=== PATIENT | male | born 1990 | race African-American/Black ===

== ENCOUNTER → 2018-01-22 07:56 | Outpatient (CLI) | payer OTHER, SELFPAY ==
--- NOTE | 2018-01-22 09:30 | PM.TREADMILL ---
Cardiac Stress Test Report Referral & Results Date Patient Seen: 01/22/18 Requesting provider: Poppy Meeks Indication: Chest pain Rest ECG: Unremarkable Procedure Note: Today following both written and verbal informed consent, the patient was exercised according to a standard [facility] protocol. The patient exercised for a total of 12 min 0 sec achieving a maximum heart rate of 189. Patient's maximum systolic blood pressure was 160. This was an estimated 12.8 MET's. There are no ST-T segment changes identified Normal heart rate and blood pressure response although perhaps slightly tachycardic ultimately Functional aerobic impairment rated 5% on the sedentary scale Impression: No evidence of ischemia Average exercise capacity Please note: Actual ECG tracings can be found in the PACS system.
== END ==
PROVIDERS: PCP Internal Medicine; Visit Provider Internal Medicine
DX: R07.9 Chest pain, unspecified (principal)
CPT/HCPCS: 93016; 93017; 93018

== ENCOUNTER 2019-06-01 12:52 | Emergency (ER) | payer OTHER, MEDICAID, SELFPAY ==
[2019-06-01] VITALS (7 sets, daily range): BP systolic 110–137; BP diastolic 71–82; PULSE 80–110; RESP 17–24; TEMP 37.5–39.5; O2SAT 94–100
--- NOTE | 2019-06-01 13:10 | DI.RAD.S_ITS ---
PROCEDURE: XR CHEST 1V INDICATIONS: suspected sepsis TECHNIQUE: One view of the chest was acquired. COMPARISON: None. FINDINGS: Surgical changes and devices: None. Lungs and pleura: Lungs are clear. No pleural effusions or pneumothorax. Mediastinum: Mediastinal contours appear normal. Heart size is normal. Bones and chest wall: No suspicious bony lesions. Overlying soft tissues appear unremarkable. IMPRESSION: Normal for age, source of current suspected sepsis symptoms is not seen. Dictated by: Ruben Lewis M.D. on 06/01/2019 at 13:48 Approved by: Ruben Lewis M.D. on 06/01/2019 at 13:48
[2019-06-01] MEDS: KETOROLAC 60 MG/2 ML VIAL 30 MG IV (13:32)
[2019-06-01] MEDS: ONDANSETRON 4 MG/2 ML INJ IV (13:32)
[2019-06-01] MEDS: SODIUM CHLORIDE 0.9% 1,000 ML 1000 ML IV (13:33)
[2019-06-01 13:39] LABS: Hematocrit 44.7 % (41-53); Hemoglobin 15.1 g/dL (13.5-17.5); Mean Corpuscular HGB Conc 33.8 % (30-36); Mean Corpuscular Hemoglobin 26.3 PG (26-34); Mean Corpuscular Volume 77.7 fL (80-100); Platelet Count 439 X10^3/uL (150-400); Red Blood Cell Count 5.75 X10^6/uL (4.5-5.9); Red Cell Distribution Width 14.2 % (11.6-14.8); White Blood Cell Count 28.5 X10^3/uL (4.5-11.0)
[2019-06-01 13:41] LABS: Add Manual Diff / Slide Review YES
[2019-06-01 13:42] LABS: INR 3.4 (0.9-1.3)
[2019-06-01 13:45] LABS: PTT Partial Thromboplastin Tim 37 SECONDS (26.4-36.2)
[2019-06-01 13:55] LABS: Influenza A - CEPHEID Flu A NEGATIVE (NEGATIVE); Influenza B - CEPHEID Flu B NEGATIVE (NEGATIVE)
--- NOTE | 2019-06-01 14:01 | ED_ITS ---
HPI - Fever <SORIN Elaine - Last Filed: 06/01/19 21:27> General Chief Complaint: Fever Stated Complaint: Fever/Flu Like Symptoms Time Seen by Provider: 06/01/19 12:55 Source: patient Mode of arrival: Ambulatory Limitations: no limitations History of Present Illness HPI Narrative: 28yo male presents emergency department complaining of fever of 101F for the past 5 days, cough, and intermittent vomiting for the past 5 days. Patient states he was staying at home taking Tylenol and ibuprofen but is continuing to have a fever and fatigue. Patient states he has a history of cyclic vomiting, has a history of asthma as a child, occasionally uses his albuterol inhaler. He denies any shortness of breath, abdominal pain, nausea or vomiting today, diarrhea, dizziness, or any other concerns. He denies any known contacts with COVID-19 cases. Related Data Previous Rx's Medication Instructions Recorded ondansetron 4 mg PO Q8H #14 tab 06/01/19 Allergies Allergy/AdvReac Type Severity Reaction Status Date / Time No Known Drug Allergies Allergy Verified 06/01/19 13:09 Review of Systems <SORIN Elaine - Last Filed: 06/01/19 21:27> Review of Systems Narrative: REVIEW OF SYSTEMS: GENERAL: Reports fever, see HPI. HENT: No head trauma or hearing loss. EYES: No loss of vision, double vision, eye pain, irritation or discharge. CARDIOVASCULAR: No chest pain or syncope. RESPIRATORY: No shortness of breath. Reports cough, see HPI. GASTROINTESTINAL: No nausea, vomiting, diarrhea, or constipation. MUSCULOSKELETAL: No weakness or injury. INTEGUMENTARY: No rash, lesions, or pruritus. NEURO: No memory loss, or confusion. Patient History <SORIN Elaine - Last Filed: 06/01/19 21:27> Medical History Cyclic vomiting syndrome (Acute) Social History Smoking Status: Current every day smoker Smoking Status: Current every day smoker tobacco type: cigarettes alcohol intake frequency: 0-2 drinks per day Substance Use Type: marijuana Exam <SORIN Elaine - Last Filed: 06/01/19 21:27> Initial Vital Signs Initial Vital Signs: Vital Signs Temperature 103.1 F H 06/01/19 13:06 Pulse Rate 110 H 06/01/19 13:06 Respiratory Rate 24 06/01/19 13:06 Blood Pressure 110/72 06/01/19 13:06 Pulse Oximetry 98 06/01/19 13:06 PHYSICAL EXAMINATION: GENERAL: Appears ill, lying in bed with eyes closed. Answers questions promptly and appropriately. Vital signs noted. HENT: Normocephalic, atraumatic. Ear canals patent. Oral mucosa is pink and moist. Oropharynx with slight erythema, no exudate. EYES: Conjunctiva pink, sclera white, no periorbital swelling. CHEST: Normal to inspection and without deformities. CARDIOVASCULAR: S1 and S2 sounds normal. Regular rate and rhythm, no murmurs, clicks, or bruits. No pedal edema. RESPIRATORY: Normal respiratory rate, trachea midline, airway patent. No stridor, nasal flaring or accessory muscle use. Lungs are clear in all rucker without wheeze, rhonchi, or crackles. Dry cough noted throughout examination. GASTROINTESTINAL: Bowel sounds normoactive. Abdomen is soft and non-tender. No organomegaly. MUSCULOSKELETAL: Normal gait and coordination. Equal tone and mass bilaterally. EXTREMITIES: CMS intact. Moves all extremities. SKIN: Warm, dry, soft, appropriate color for ethnicity. No lesions, rashes, or wounds. NEURO: Alert and Oriented X 3. Good coordination. No ataxia, or sensory deficits, or cognitive issues. PSYCH: Appropriate affect and mood. <Mildred Ulloa MD - Last Filed: 06/15/19 06:58> Initial Vital Signs Initial Vital Signs: Vital Signs Temperature 103.1 F H 06/01/19 13:06 Pulse Rate 110 H 06/01/19 13:06 Respiratory Rate 24 06/01/19 13:06 Blood Pressure 110/72 06/01/19 13:06 Pulse Oximetry 98 06/01/19 13:06 Course <SORIN Elaine - Last Filed: 06/01/19 21:27> Course Course Narrative: Patient tripped sepsis protocol, isolation precautions were taken. Sepsis orders were placed. Zofran, Toradol, and fluids were given. After administration of medication, patient states he feels significantly better. Patient's vitals normalize, temperature decrease, pulse was no longer tachycardic, patient was able to keep p.o. food and fluids down. Orders Ordered: Discontinued Medications Acetaminophen (Tylenol) 975 mg PO NOW ONE Stop: 06/01/19 15:48 Last Admin: 06/01/19 16:14 Dose: 975 mg Documented by: MARIZA Sodium Chloride (Normal Saline 0.9%) 1,000 mls @ 1,000 mls/hr IV BOLUS ONE Stop: 06/01/19 14:09 Last Infusion: 06/01/19 14:25 Dose: 0 mls/hr Documented by: Admin: 06/01/19 13:33 Dose: 1,000 mls/hr Documented by: MARIZA Lactated Ringer's (Lactated Ringers) 2,517.45 mls @ 839.15 mls/hr 30 ml/kg infuse over 3 hr (2517.45 ml) IV NOW ONE Stop: 06/01/19 17:08 Last Infusion: 06/01/19 16:52 Dose: 0 mls/hr Documented by: Admin: 06/01/19 14:23 Dose: 839.15 mls/hr Documented by: MARIZA Ketorolac Tromethamine (Toradol) 30 mg IV NOW ONE Stop: 06/01/19 13:27 Last Admin: 06/01/19 13:32 Dose: 30 mg Documented by: MARIZA Ondansetron HCl (Zofran) 4 mg IV NOW ONE Stop: 06/01/19 13:11 Last Admin: 06/01/19 13:32 Dose: 4 mg Documented by: MARIZA Consultations Consultation #1: Patient staffed with Dr. Ulloa Vital Signs Vital signs: Vital Signs - 8 hr 06/01/19 13:39 06/01/19 14:15 06/01/19 14:37 Temperature 99.9 F H Pulse Rate 105 H 94 H Respiratory Rate Blood Pressure [Left Arm] 135/82 128/71 Pulse Oximetry 100 94 06/01/19 15:28 06/01/19 15:45 06/01/19 16:31 Temperature 99.5 F Pulse Rate 82 80 Respiratory Rate 17 21 Blood Pressure [Left Arm] 123/73 137/79 Pulse Oximetry 96 100 <Mildred Ulloa MD - Last Filed: 06/15/19 06:58> Orders Ordered: Discontinued Medications Acetaminophen (Tylenol) 975 mg PO NOW ONE Stop: 06/01/19 15:48 Last Admin: 06/01/19 16:14 Dose: 975 mg Documented by: MARIZA Sodium Chloride (Normal Saline 0.9%) 1,000 mls @ 1,000 mls/hr IV BOLUS ONE Stop: 06/01/19 14:09 Last Infusion: 06/01/19 14:25 Dose: 0 mls/hr Documented by: Admin: 06/01/19 13:33 Dose: 1,000 mls/hr Documented by: MARIZA Lactated Ringer's (Lactated Ringers) 2,517.45 mls @ 839.15 mls/hr 30 ml/kg infuse over 3 hr (2517.45 ml) IV NOW ONE Stop: 06/01/19 17:08 Last Infusion: 06/01/19 16:52 Dose: 0 mls/hr Documented by: Admin: 06/01/19 14:23 Dose: 839.15 mls/hr Documented by: MARIZA Ketorolac Tromethamine (Toradol) 30 mg IV NOW ONE Stop: 06/01/19 13:27 Last Admin: 06/01/19 13:32 Dose: 30 mg Documented by: MARIZA Ondansetron HCl (Zofran) 4 mg IV NOW ONE Stop: 06/01/19 13:11 Last Admin: 06/01/19 13:32 Dose: 4 mg Documented by: MARIZA Vital Signs Vital signs: Vital Signs - 8 hr 06/01/19 13:39 06/01/19 14:15 06/01/19 14:37 Temperature 99.9 F H Pulse Rate 105 H 94 H Respiratory Rate Blood Pressure [Left Arm] 135/82 128/71 Pulse Oximetry 100 94 06/01/19 15:28 06/01/19 15:45 06/01/19 16:31 Temperature 99.5 F Pulse Rate 82 80 Respiratory Rate 17 21 Blood Pressure [Left Arm] 123/73 137/79 Pulse Oximetry 96 100 MDM - Fever <SORIN Elaine - Last Filed: 06/01/19 21:27> Medical Records Attestation: I reviewed the patient's medical records. Lab Data Attestation: I reviewed the patient's lab results. Result diagrams: 06/01/19 13:20 06/01/19 13:20 Labs: Lab Results 06/01/19 06/01/19 06/01/19 Range/Units 13:11 13:11 13:20 WBC 28.5 H (4.5-11.0) X10^3/uL RBC 5.75 (4.5-5.9) X10^6/uL Hgb 15.1 (13.5-17.5) g/dL Hct 44.7 (41-53) % MCV 77.7 L (80-100) fL MCH 26.3 (26-34) PG MCHC 33.8 (30-36) % RDW 14.2 (11.6-14.8) % Plt Count 439 H (150-400) X10^3/uL Neut % (Auto) Not Reportable Lymph % (Auto) Not Reportable [place] % (Auto) Not Reportable Eos % (Auto) Not Reportable Baso % (Auto) Not Reportable Lymph # (Auto) Not Reportable [place] # (Auto) Not Reportable Baso # (Auto) Not Reportable Total Counted 100 Seg Neutrophils % 66.0 (38-70) % Band Neutrophils % 6.0 (3-7) % Lymphocytes % (Manual) 7.0 L (25-45) % Atypical Lymphs % 11.0 H ( - 0) % Monocytes % (Manual) 10.0 (2-11) % Neutrophils # (Manual) 11924 H (2264-0908) /uL RBC Morphology Normal morphology PT (10.1-12.7) SECONDS INR (0.9-1.3) APTT (26.4-36.2) SECONDS Sodium (137-145) mmol/L Potassium (3.4-5.1) mmol/L Chloride (98-107) mmol/L Carbon Dioxide (22-32) mmol/L BUN (9-20) mg/dL Creatinine (0.66-1.25) mg/dL Estimated GFR (>60) mL/min BUN/Creatinine Ratio (6-22) Glucose (70-100) mg/dL Lactate (0.7-2.1) mmol/L Calcium (8.4-10.2) mg/dL Total Bilirubin (0.2-1.3) mg/dL AST (17-59) IU/L ALT (<50) IU/L Alkaline Phosphatase (38-126) U/L Total Protein (6.3-8.2) g/dL Albumin (3.5-5.0) g/dL Globulin (1.7-4.1) g/dL Albumin/Globulin Ratio (1.0-2.8) Lipase (23-300) U/L Procalcitonin (<0.5) ng/mL Coronavirus (PCR) Cancelled COVID-19 PCR Not detected (Not Detected) Influenza A (RT-PCR) Flu a negative (NEGATIVE) Influenza B (RT-PCR) Flu b negative (NEGATIVE) 06/01/19 06/01/19 06/01/19 Range/Units 13:20 13:20 13:20 WBC (4.5-11.0) X10^3/uL RBC (4.5-5.9) X10^6/uL Hgb (13.5-17.5) g/dL Hct (41-53) % MCV (80-100) fL MCH (26-34) PG MCHC (30-36) % RDW (11.6-14.8) % Plt Count (150-400) X10^3/uL Neut % (Auto) Lymph % (Auto) [place] % (Auto) Eos % (Auto) Baso % (Auto) Lymph # (Auto) [place] # (Auto) Baso # (Auto) Total Counted Seg Neutrophils % (38-70) % Band Neutrophils % (3-7) % Lymphocytes % (Manual) (25-45) % Atypical Lymphs % ( - 0) % Monocytes % (Manual) (2-11) % Neutrophils # (Manual) (8617-8708) /uL RBC Morphology PT 39.0 H (10.1-12.7) SECONDS INR 3.4 H (0.9-1.3) APTT 37 H (26.4-36.2) SECONDS Sodium 136 L (137-145) mmol/L Potassium 4.3 (3.4-5.1) mmol/L Chloride 98 (98-107) mmol/L Carbon Dioxide 27 (22-32) mmol/L BUN 18 (9-20) mg/dL Creatinine 1.07 (0.66-1.25) mg/dL Estimated GFR > 60.0 (>60) mL/min BUN/Creatinine Ratio 16.8 (6-22) Glucose 121 H (70-100) mg/dL Lactate (0.7-2.1) mmol/L Calcium 9.7 (8.4-10.2) mg/dL Total Bilirubin 0.8 (0.2-1.3) mg/dL AST 21 (17-59) IU/L ALT 13 (<50) IU/L Alkaline Phosphatase 93 (38-126) U/L Total Protein 8.9 H (6.3-8.2) g/dL Albumin 4.4 (3.5-5.0) g/dL Globulin 4.5 H (1.7-4.1) g/dL Albumin/Globulin Ratio 1.0 (1.0-2.8) Lipase 158 (23-300) U/L Procalcitonin 0.43 (<0.5) ng/mL Coronavirus (PCR) COVID-19 PCR (Not Detected) Influenza A (RT-PCR) (NEGATIVE) Influenza B (RT-PCR) (NEGATIVE) 06/01/19 Range/Units 13:20 WBC (4.5-11.0) X10^3/uL RBC (4.5-5.9) X10^6/uL Hgb (13.5-17.5) g/dL Hct (41-53) % MCV (80-100) fL MCH (26-34) PG MCHC (30-36) % RDW (11.6-14.8) % Plt Count (150-400) X10^3/uL Neut % (Auto) Lymph % (Auto) [place] % (Auto) Eos % (Auto) Baso % (Auto) Lymph # (Auto) [place] # (Auto) Baso # (Auto) Total Counted Seg Neutrophils % (38-70) % Band Neutrophils % (3-7) % Lymphocytes % (Manual) (25-45) % Atypical Lymphs % ( - 0) % Monocytes % (Manual) (2-11) % Neutrophils # (Manual) (7900-3035) /uL RBC Morphology PT (10.1-12.7) SECONDS INR (0.9-1.3) APTT (26.4-36.2) SECONDS Sodium (137-145) mmol/L Potassium (3.4-5.1) mmol/L Chloride (98-107) mmol/L Carbon Dioxide (22-32) mmol/L BUN (9-20) mg/dL Creatinine (0.66-1.25) mg/dL Estimated GFR (>60) mL/min BUN/Creatinine Ratio (6-22) Glucose (70-100) mg/dL Lactate 1.1 (0.7-2.1) mmol/L Calcium (8.4-10.2) mg/dL Total Bilirubin (0.2-1.3) mg/dL AST (17-59) IU/L ALT (<50) IU/L Alkaline Phosphatase (38-126) U/L Total Protein (6.3-8.2) g/dL Albumin (3.5-5.0) g/dL Globulin (1.7-4.1) g/dL Albumin/Globulin Ratio (1.0-2.8) Lipase (23-300) U/L Procalcitonin (<0.5) ng/mL Coronavirus (PCR) COVID-19 PCR (Not Detected) Influenza A (RT-PCR) (NEGATIVE) Influenza B (RT-PCR) (NEGATIVE) Point of Care Testing Rapid Strep A Negative Urine Dip Bedside Urine Glucose Negative Bedside Urine Bilirubin + 1 Bedside Urine Ketone +/- 5 Urine Specific [place] 1.020 Bedside Urine Occult Blood - Negative Bedside Urine pH 6.0 Bedside Urine Protein + 30 Bedside Urine Urobilinogen - Negative Bedside Urine Nitrite - Negative Bedside Urine Leukocytes - Negative Esterase Imaging Data Chest x-ray: Radiologist's Impression: [address] [id number] XRay Report Signed Patient: Sajan Gongora LMR#: [id number] : 1990Acct:[id number] Age/Sex: 28 / MDate of Service: 06/01/19 Loc: ED Accession Number: [id number] Procedure: XR chest 1V Ordering Provider: Bella Wilcox PROCEDURE: XR CHEST 1V INDICATIONS: suspected sepsis TECHNIQUE: One view of the chest was acquired. COMPARISON: None. FINDINGS: Surgical changes and devices: None. Lungs and pleura: Lungs are clear. No pleural effusions or pneumothorax. Mediastinum: Mediastinal contours appear normal. Heart size is normal. Bones and chest wall: No suspicious bony lesions. Overlying soft tissues appear unremarkable. IMPRESSION: Normal for age, source of current suspected sepsis symptoms is not seen. Dictated by: Ruben Lewis M.D. on 06/01/2019 at 13:48 Approved by: Ruben Lewis M.D. on 06/01/2019 at 13:48 [facility] Narrative Medical decision making narrative: 28-year-old male presents emergency department for cough, fever, and sore throat. Chest x-ray is negative for pneumonia. Urine clean, strep test negative. Sepsis criteria were met and orders were placed due to presentation and vital signs. Patient's white count was significantly elevated, no other findings of infection were seen. Patient was hemodynamically stable after administration of medication, he was able to keep food and fluids down without vomiting. I am unsure the exact cause of patient's symptoms. However, due to circumstances, CVOID-19 test was ordered. Patient was placed on precautions and instructed to self isolate until symptoms resolve. He did not meet any admission criteria but was counseled extensively to return emergency department for any new or worsening symptoms. Vomiting resolved and he did not have any abdominal pain, less suspicion for acute abdominal etiology. Less likely pneumonia due to negative chest x-ray, clear lung sounds, and no significant dyspnea or hypoxia. Patient agreed to plan of care verbalized understanding. <Mildred Ulloa MD - Last Filed: 06/15/19 06:58> Lab Data Labs: Lab Results 06/01/19 06/01/19 06/01/19 Range/Units 13:11 13:11 13:20 WBC 28.5 H (4.5-11.0) X10^3/uL RBC 5.75 (4.5-5.9) X10^6/uL Hgb 15.1 (13.5-17.5) g/dL Hct 44.7 (41-53) % MCV 77.7 L (80-100) fL MCH 26.3 (26-34) PG MCHC 33.8 (30-36) % RDW 14.2 (11.6-14.8) % Plt Count 439 H (150-400) X10^3/uL Neut % (Auto) Not Reportable Lymph % (Auto) Not Reportable [place] % (Auto) Not Reportable Eos % (Auto) Not Reportable Baso % (Auto) Not Reportable Lymph # (Auto) Not Reportable [place] # (Auto) Not Reportable Baso # (Auto) Not Reportable Total Counted 100 Seg Neutrophils % 66.0 (38-70) % Band Neutrophils % 6.0 (3-7) % Lymphocytes % (Manual) 7.0 L (25-45) % Atypical Lymphs % 11.0 H ( - 0) % Monocytes % (Manual) 10.0 (2-11) % Neutrophils # (Manual) 89479 H (5387-3335) /uL RBC Morphology Normal morphology PT (10.1-12.7) SECONDS INR (0.9-1.3) APTT (26.4-36.2) SECONDS Sodium (137-145) mmol/L Potassium (3.4-5.1) mmol/L Chloride (98-107) mmol/L Carbon Dioxide (22-32) mmol/L BUN (9-20) mg/dL Creatinine (0.66-1.25) mg/dL Estimated GFR (>60) mL/min BUN/Creatinine Ratio (6-22) Glucose (70-100) mg/dL Lactate (0.7-2.1) mmol/L Calcium (8.4-10.2) mg/dL Total Bilirubin (0.2-1.3) mg/dL AST (17-59) IU/L ALT (<50) IU/L Alkaline Phosphatase (38-126) U/L Total Protein (6.3-8.2) g/dL Albumin (3.5-5.0) g/dL Globulin (1.7-4.1) g/dL Albumin/Globulin Ratio (1.0-2.8) Lipase (23-300) U/L Procalcitonin (<0.5) ng/mL Coronavirus (PCR) Cancelled COVID-19 PCR Not detected (Not Detected) Influenza A (RT-PCR) Flu a negative (NEGATIVE) Influenza B (RT-PCR) Flu b negative (NEGATIVE) 06/01/19 06/01/19 06/01/19 Range/Units 13:20 13:20 13:20 WBC (4.5-11.0) X10^3/uL RBC (4.5-5.9) X10^6/uL Hgb (13.5-17.5) g/dL Hct (41-53) % MCV (80-100) fL MCH (26-34) PG MCHC (30-36) % RDW (11.6-14.8) % Plt Count (150-400) X10^3/uL Neut % (Auto) Lymph % (Auto) [place] % (Auto) Eos % (Auto) Baso % (Auto) Lymph # (Auto) [place] # (Auto) Baso # (Auto) Total Counted Seg Neutrophils % (38-70) % Band Neutrophils % (3-7) % Lymphocytes % (Manual) (25-45) % Atypical Lymphs % ( - 0) % Monocytes % (Manual) (2-11) % Neutrophils # (Manual) (0862-2216) /uL RBC Morphology PT 39.0 H (10.1-12.7) SECONDS INR 3.4 H (0.9-1.3) APTT 37 H (26.4-36.2) SECONDS Sodium 136 L (137-145) mmol/L Potassium 4.3 (3.4-5.1) mmol/L Chloride 98 (98-107) mmol/L Carbon Dioxide 27 (22-32) mmol/L BUN 18 (9-20) mg/dL Creatinine 1.07 (0.66-1.25) mg/dL Estimated GFR > 60.0 (>60) mL/min BUN/Creatinine Ratio 16.8 (6-22) Glucose 121 H (70-100) mg/dL Lactate (0.7-2.1) mmol/L Calcium 9.7 (8.4-10.2) mg/dL Total Bilirubin 0.8 (0.2-1.3) mg/dL AST 21 (17-59) IU/L ALT 13 (<50) IU/L Alkaline Phosphatase 93 (38-126) U/L Total Protein 8.9 H (6.3-8.2) g/dL Albumin 4.4 (3.5-5.0) g/dL Globulin 4.5 H (1.7-4.1) g/dL Albumin/Globulin Ratio 1.0 (1.0-2.8) Lipase 158 (23-300) U/L Procalcitonin 0.43 (<0.5) ng/mL Coronavirus (PCR) COVID-19 PCR (Not Detected) Influenza A (RT-PCR) (NEGATIVE) Influenza B (RT-PCR) (NEGATIVE) 06/01/19 Range/Units 13:20 WBC (4.5-11.0) X10^3/uL RBC (4.5-5.9) X10^6/uL Hgb (13.5-17.5) g/dL Hct (41-53) % MCV (80-100) fL MCH (26-34) PG MCHC (30-36) % RDW (11.6-14.8) % Plt Count (150-400) X10^3/uL Neut % (Auto) Lymph % (Auto) [place] % (Auto) Eos % (Auto) Baso % (Auto) Lymph # (Auto) [place] # (Auto) Baso # (Auto) Total Counted Seg Neutrophils % (38-70) % Band Neutrophils % (3-7) % Lymphocytes % (Manual) (25-45) % Atypical Lymphs % ( - 0) % Monocytes % (Manual) (2-11) % Neutrophils # (Manual) (4236-0257) /uL RBC Morphology PT (10.1-12.7) SECONDS INR (0.9-1.3) APTT (26.4-36.2) SECONDS Sodium (137-145) mmol/L Potassium (3.4-5.1) mmol/L Chloride (98-107) mmol/L Carbon Dioxide (22-32) mmol/L BUN (9-20) mg/dL Creatinine (0.66-1.25) mg/dL Estimated GFR (>60) mL/min BUN/Creatinine Ratio (6-22) Glucose (70-100) mg/dL Lactate 1.1 (0.7-2.1) mmol/L Calcium (8.4-10.2) mg/dL Total Bilirubin (0.2-1.3) mg/dL AST (17-59) IU/L ALT (<50) IU/L Alkaline Phosphatase (38-126) U/L Total Protein (6.3-8.2) g/dL Albumin (3.5-5.0) g/dL Globulin (1.7-4.1) g/dL Albumin/Globulin Ratio (1.0-2.8) Lipase (23-300) U/L Procalcitonin (<0.5) ng/mL Coronavirus (PCR) COVID-19 PCR (Not Detected) Influenza A (RT-PCR) (NEGATIVE) Influenza B (RT-PCR) (NEGATIVE) Point of Care Testing Rapid Strep A Negative Urine Dip Bedside Urine Glucose Negative Bedside Urine Bilirubin + 1 Bedside Urine Ketone +/- 5 Urine Specific [place] 1.020 Bedside Urine Occult Blood - Negative Bedside Urine pH 6.0 Bedside Urine Protein + 30 Bedside Urine Urobilinogen - Negative Bedside Urine Nitrite - Negative Bedside Urine Leukocytes - Negative Esterase Discharge Plan Departure Patient Disposition: Home Clinical Impression: Upper respiratory tract infection Qualifiers: URI type: unspecified viral URI Qualified Code(s): J06.9 - Acute upper respiratory infection, unspecified Discharge Date/Time: 06/01/19 16:54 Instructions: DI for Viral Upper Respiratory Infection -- Adult, DI for Fever (Symptom) -- Adult Activity Restrictions/Additional Instructions: Thank you for entrusting me with your care today. As discussed, your x-rays negative for any pneumonia, your blood work does show that you have some sort infection with an elevated white blood cell count. This may be viral. A test for the COVID-19 virus was sent, this can take 4-5 days to return. Please call your primary care provider today or tomorrow and schedule an appointment within the week to have your white blood cell count right checked to rule out other causes of your symptoms. Please remain on strict isolation for 3 days until all of your symptoms including your cough have resolved. Continue to take Tylenol and ibuprofen for fevers, drink lots of fluids, and I have given you a prescription for ondansetron for nausea if needed. Return emergency department for any new or worsening symptoms such as severe shortness of breath, fevers johanny t do not decreased without Tylenol or ibuprofen, inability to keep any fluids down, or any other concerns. Prescriptions: New ondansetron 4 mg tablet,disintegrating 4 mg PO Q8H Qty: 14 RF: 0 Referrals: Shakira Ramos MD [Primary Care Provider] -
[2019-06-01 14:03] LABS: Lactate (Lactic Acid) 1.1 mmol/L (0.7-2.1); Neutrophils Absolute Manual 20520 /uL (3000-5900); Total Cells Counted 100
[2019-06-01 14:04] LABS: RBC Morphology Normal Morphology
[2019-06-01 14:06] LABS: Alanine Aminotransferase 13 IU/L (<50); Albumin 4.4 g/dL (3.5-5.0); Alkaline Phosphatase 93 U/L (38-126); Aspartate Aminotransferase 21 IU/L (17-59); BUN Creatinine Ratio 16.8 (6-22); Bilirubin Total 0.8 mg/dL (0.2-1.3); Blood Urea Nitrogen 18 mg/dL (9-20); Calcium 9.7 mg/dL (8.4-10.2); Carbon Dioxide 27 mmol/L (22-32); Chloride 98 mmol/L (98-107); Estimated Glomerular Filt Rate > 60.0 mL/min (>60); Globulin 4.5 g/dL (1.7-4.1); Glucose 121 mg/dL (70-100); HEMOLYSIS < 15 (0-50); Lipase 158 U/L (23-300); Potassium 4.3 mmol/L (3.4-5.1); Sodium 136 mmol/L (137-145); Total Protein 8.9 g/dL (6.3-8.2)
[2019-06-01] MEDS: LACTATED RINGERS 839.15 ML IV (14:23)
[2019-06-01 14:32] LABS: Procalcitonin 0.43 ng/mL (<0.5)
[2019-06-01] MEDS: ACETAMINOPHEN 325 MG TABLET 975 MG PO (16:14)
[2019-06-11 08:07] LABS: COVID19 Sendout Not Detected (Not Detected)
== END 2019-06-01 16:54 | disposition home or self-care (01) ==
PROVIDERS: Emergency Provider Nurse Practitioner; PCP Internal Medicine
DX: J06.9 Acute upper respiratory infection, unspecified (principal); R50.9 Fever, unspecified
CPT/HCPCS: 36415; 71045; 80053; 81003; 83605; 83690; 84145; 85025; 85610; 85730; 87040; 87502; 87635; 87880; 96361; 96374; 96375; 99284; J1885; J2405

== ENCOUNTER 2019-09-04 08:38 | Emergency (ER) | payer OTHER, MEDICAID, SELFPAY ==
[2019-09-04 08:45] VITALS: BP 151/84; PULSE 95; RESP 18; TEMP 37.4; O2SAT 99; BMI 23.7
[2019-09-04 09:07] LABS: Add Manual Diff / Slide Review NO; Basophils Absolute Auto 100 /uL (0-100); Basophils Percent Auto 0.4 % (0-2); Eosinophils Absolute Auto 600 /uL (0-450); Eosinophils Percent Auto 3.1 % (2-4); Hematocrit 44.4 % (41-53); Hemoglobin 15.2 g/dL (13.5-17.5); Lymphocytes Absolute Auto 1800 /uL (1100-4500); Lymphocytes Percent Auto 9.6 % (25-40); Mean Corpuscular HGB Conc 34.1 % (30-36); Mean Corpuscular Hemoglobin 27.2 PG (26-34); Mean Corpuscular Volume 79.7 fL (80-100); Monocytes Absolute Auto 700 /uL (0-900); Neutrophils Absolute Auto 15500 /uL (1500-7000); Neutrophils Percent Auto 82.9 % (50-75); Platelet Count 366 X10^3/uL (150-400); Red Blood Cell Count 5.58 X10^6/uL (4.5-5.9); Red Cell Distribution Width 14.8 % (11.6-14.8); White Blood Cell Count 18.7 X10^3/uL (4.5-11.0)
--- NOTE | 2019-09-04 09:13 | DI.RAD.S_ITS ---
PROCEDURE: XR ACUTE ABDOMEN SERIES INDICATIONS: abdominal pain with cyclical vomiting TECHNIQUE: One view chest and two views of the abdomen were acquired. COMPARISON: None. FINDINGS: Surgical changes and devices: None. Chest: Lungs are clear. Heart size is normal. No pleural effusions. No pneumoperitoneum. Abdomen: Bowel gas pattern is nonspecific. Moderate amount stool in left colon. suspicious calcifications. Visualized solid organ contours appear normal. Bones: No suspicious bony lesions. IMPRESSION: 1. Nonspecific bowel gas pattern. If patient's symptoms persist or worsen, CT scan of the abdomen/pelvis consider for further evaluation. 2. Moderate fecal loading of the left colon. Dictated by: Yahaira Coker MD, PhD on 09/04/2019 at 9:38 Approved by: Yahaira Coker MD, PhD on 09/04/2019 at 9:39
[2019-09-04 09:15] LABS: INR 1.8 (0.9-1.3); Prothrombin Time 20.9 SECONDS (10.1-12.7)
[2019-09-04] MEDS: ONDANSETRON 4 MG/2 ML INJ IV (09:17)
[2019-09-04 09:18] LABS: PTT Partial Thromboplastin Tim 34 SECONDS (26.4-36.2)
[2019-09-04] MEDS: SODIUM CHLORIDE 0.9% 1,000 ML 2000 ML IV (09:18)
[2019-09-04 09:19] LABS: Alanine Aminotransferase 23 IU/L (<50); Albumin 4.8 g/dL (3.5-5.0); Albumin Globulin Ratio 1.3 (1.0-2.8); Alkaline Phosphatase 89 U/L (38-126); Aspartate Aminotransferase 35 IU/L (17-59); BUN Creatinine Ratio 10.7 (6-22); Bilirubin Total 0.9 mg/dL (0.2-1.3); Blood Urea Nitrogen 12 mg/dL (9-20); Carbon Dioxide 24 mmol/L (22-32); Chloride 102 mmol/L (98-107); Estimated Glomerular Filt Rate > 60.0 mL/min (>60); Globulin 3.7 g/dL (1.7-4.1); Glucose 115 mg/dL (70-100); HEMOLYSIS < 15 (0-50); Lipase 244 U/L (23-300); Potassium 4.1 mmol/L (3.4-5.1); Sodium 137 mmol/L (137-145); Total Protein 8.5 g/dL (6.3-8.2)
[2019-09-04] MEDS: KETOROLAC 60 MG/2 ML VIAL 30 MG IV (09:20)
[2019-09-04] MEDS: diphenhydrAMINE 50 MG/ML VIAL 25 MG IV (09:20)
[2019-09-04 09:51] LABS: Lactate Dehydrogenase 565 U/L (313-618)
[2019-09-04 09:57] LABS: Lactate (Lactic Acid) 2.1 mmol/L (0.7-2.1)
[2019-09-04] MEDS: LORazepam 2 MG/ML INJ 1 MG IV (10:01)
[2019-09-04 10:29] VITALS: BP 138/88; PULSE 86; RESP 16; O2SAT 96
[2019-09-04] MEDS: SODIUM CHLORIDE 0.9% 1,000 ML 1000 ML IV (10:51)
[2019-09-04 11:33] VITALS: BP 155/89; PULSE 82; RESP 17; O2SAT 98
--- NOTE | 2019-09-04 11:39 | ED_ITS ---
HPI - Abdominal Pain General Chief Complaint: Abdominal Pain Stated Complaint: vomiting all morning Time Seen by Provider: 09/04/19 08:58 Source: patient Mode of arrival: Family Vehicle Limitations: no limitations History of Present Illness HPI narrative: CC: Persistent vomiting HPI: The patient is a 28-year-old male who presented to the emergency department with persistent nausea and vomiting which started at 6:30 a.m. in the morning. He states that he has a history of cyclical vomiting and he woke up vomiting. He denies having any significant abdominal pain. He has had no hematemesis coffee-ground emesis. He has been having normal bowel movements without melena hematochezia no diarrhea. He has not been drinking any alcohol he does smoke marijuana on a daily basis and smokes yesterday. He was insistent that his marijuana usage was not causing his cyclical vomiting. He denies a history of diabetes mellitus hypertension but admits to history of asthma. He has had no appendectomy cholecystectomy or surgery on his belly. He smokes cigarettes drinks alcohol and uses marijuana almost daily. Related Data Home Medications Medication Instructions Recorded Confirmed rivaroxaban [Xarelto] 20 mg PO DAILY 09/04/19 09/04/19 Previous Rx's Medication Instructions Recorded ondansetron 4 mg PO Q8H #14 tab 06/01/19 diphenhydramine HCl [Benadryl 25 mg PO Q6H PRN #20 tab 09/04/19 Allergy] ondansetron HCl [Zofran] 4 mg PO Q6H PRN #15 tab 09/04/19 prochlorperazine [Compazine] [address] Q12H PRN #12 each 09/04/19 Allergies Allergy/AdvReac Type Severity Reaction Status Date / Time No Known Drug Allergies Allergy Verified 09/04/19 09:21 Review of Systems Review of Systems Narrative: REVIEW OF SYSTEMS: CONSTITUTIONAL: He denies any fever chills or sweats. NEUROLOGICAL: He has had no headache numbness tingling paresthesias this anesthesia or paresis. EENT: He denies any sore throat or trouble swallowing. CARDIO-PULMONARY: He has had no significant chest pain cough shortness of breath palpitations dizziness. GASTROINTESTINAL: He has cyclical vomiting without hematemesis or coffee-ground emesis GENITAL URINARY: He has had no urinary symptoms. MUSCULOSKELETAL/ RHEUMATOLOGICAL: He denies any back ache. Patient History Medical History Cyclic vomiting syndrome (Acute) Social History Smoking Status: Current every day smoker Smoking Status: Current every day smoker tobacco type: cigarettes alcohol intake frequency: 0-2 drinks per day Substance Use Type: marijuana Exam Narrative Exam Narrative: PHYSICAL EXAM: CONSTITUTIONAL: Awake, Alert, Oriented, Coherent, Cooperative in moderate distress. HEAD: AT/NC EENT: PERRL, FROM of eyes, no discharge, no nystagmus NOSE:No epistaxis or nasal drainage MOUTH:Oral mucosa is moist and pink, posterior pharynx is without erythema or exudate. NECK: Supple, no obvious JVD, Trachea is midline without stridor, no palpable LN. SPINE: Palpationof the cervical, Thoracic, Lumbar or Sacral spine reveals no gross deformity or tenderness. No CVA tenderness. THORAX: No deformity, retractions, chest wall tenderness. LUNGS: The patient jumped when the stethoscope was placed on his back. Lungs were clear and symmetrical. HEART: Normal heart tones, regular rhythm and rate without murmur. ABDOMEN: The patient is tender to palpation of the epigastrium and right upper quadrant. There is no guarding rebound or rigidity. LYMPHATIC: no palpable lymph nodes or spleen. EXTREMITIES: No edema, deformity, tenderness or cyanosis. SKIN: No rash, bruising, petechiae or purpura. NEURO: Awake, alert, oriented, conversive, cranial nerves II-XII are symmetrical , moves all 4 extremities and is ambulatory. Initial Vital Signs Initial Vital Signs: Vital Signs Temperature 99.4 F 09/04/19 08:45 Pulse Rate 95 H 09/04/19 08:45 Respiratory Rate 18 09/04/19 08:45 Blood Pressure 151/84 H 09/04/19 08:45 Pulse Oximetry 99 09/04/19 08:45 Course Course Course Narrative: 1139 the patient has a nonspecific bowel gas pattern. If patient's symptoms persist or worsen a CT scan of the abdomen and pelvis should be considered. The patient has a moderate fecal load in the left colon. His chemistries are basically within normal limits except for a leukocytosis secondary probably to his persistent retching and de margination. The rest of his chemistries are basically within normal limits. The patient is being clinically treated for dehydration and cyclical vomiting. 12:58 patient remains a little anxious. But his vomiting has been controlled. He is feeling well enough that he thinks he can go home. He will be given 1 mg of Ativan p.o.. He will be discharged taking 1-2 tablets of Zofran with the onset of his nausea and vomiting. If this does not control his vomiting he can take 1-2 tablets of Benadryl 25 mg each followed by Compazine rectal suppositories. If this does no t control his vomiting he can return to the emergency department for IV fluids and further evaluation for dehydration. Orders Ordered: ED Orders 09/04/19 12:45 Urine Microscopic Stat Discontinued Medications Dicyclomine HCl (Bentyl) 20 mg PO NOW ONE Stop: 09/04/19 11:41 Last Admin: 09/04/19 12:59 Dose: 20 mg Documented by: RICHARD Diphenhydramine HCl (Benadryl) 25 mg IV NOW ONE Stop: 09/04/19 09:13 Last Admin: 09/04/19 09:20 Dose: 25 mg Documented by: MARIZA Sodium Chloride (Normal Saline 0.9%) 1,000 mls @ 1,000 mls/hr IV BOLUS ONE Stop: 09/04/19 09:48 Last Admin: 09/04/19 09:18 Dose: Not Given Documented by: MARIZA Sodium Chloride (Normal Saline 0.9%) 1,000 mls @ 2,000 mls/hr IV BOLUS ONE Stop: 09/04/19 09:40 Last Infusion: 09/04/19 10:52 Dose: 0 mls/hr Documented by: Admin: 09/04/19 09:18 Dose: 2,000 mls/hr Documented by: MARIZA Ondansetron HCl 8 mg/ Sodium (Chloride) 54 mls @ 216 mls/hr IV NOW ONE Stop: 09/04/19 09:13 Last Admin: 09/04/19 10:52 Dose: Not Given Documented by: RICHARD Sodium Chloride (Normal Saline 0.9%) 1,000 mls @ 1,000 mls/hr IV BOLUS ONE Stop: 09/04/19 10:55 Last Infusion: 09/04/19 12:42 Dose: 0 mls/hr Documented by: Admin: 09/04/19 10:51 Dose: 1,000 mls/hr Documented by: RICHARD Ketorolac Tromethamine (Toradol) 30 mg IV NOW ONE Stop: 09/04/19 09:13 Last Admin: 09/04/19 09:20 Dose: 30 mg Documented by: MARIZA Lorazepam (Ativan) 1 mg IV NOW ONE Stop: 09/04/19 09:55 Last Admin: 09/04/19 10:01 Dose: 1 mg Documented by: RICHARD Lorazepam (Ativan) 1 mg PO NOW ONE Stop: 09/04/19 13:00 Last Admin: 09/04/19 13:14 Dose: 1 mg Documented by: MARIZA Ondansetron HCl (Zofran) 4 mg IV NOW ONE Stop: 09/04/19 08:49 Last Admin: 09/04/19 09:17 Dose: 4 mg Documented by: MARIZA Vital Signs Vital signs: Vital Signs - 8 hr 09/04/19 13:19 Pulse Rate 70 Respiratory Rate 16 Blood Pressure [Right Arm] 124/87 Pulse Oximetry 99 MDM - Abdominal Pain Medical Records Attestation: I reviewed the patient's medical records. Lab Data Attestation: I reviewed the patient's lab results. Result diagrams: 09/04/19 08:58 09/04/19 08:58 Labs: Lab Results 09/04/19 09/04/19 09/04/19 Range/Units 08:58 08:58 08:58 WBC 18.7 H (4.5-11.0) X10^3/uL RBC 5.58 (4.5-5.9) X10^6/uL Hgb 15.2 (13.5-17.5) g/dL Hct 44.4 (41-53) % MCV 79.7 L (80-100) fL MCH 27.2 (26-34) PG MCHC 34.1 (30-36) % RDW 14.8 (11.6-14.8) % Plt Count 366 (150-400) X10^3/uL Neut % (Auto) 82.9 H (50-75) % Lymph % (Auto) 9.6 L (25-40) % Charles % (Auto) 4.0 (3-14) % Eos % (Auto) 3.1 (2-4) % Baso % (Auto) 0.4 (0-2) % Neut # (Auto) 00196 H (4079-2120) /uL Lymph # (Auto) 1800 (6614-1415) /uL Charles # (Auto) 700 (0-900) /uL Eos # (Auto) 600 H (0-450) /uL Baso # (Auto) 100 (0-100) /uL PT 20.9 H (10.1-12.7) SECONDS INR 1.8 H (0.9-1.3) APTT 34 D (26.4-36.2) SECONDS Sodium 137 (137-145) mmol/L Potassium 4.1 (3.4-5.1) mmol/L Chloride 102 (98-107) mmol/L Carbon Dioxide 24 (22-32) mmol/L BUN 12 (9-20) mg/dL Creatinine 1.12 (0.66-1.25) mg/dL Estimated GFR > 60.0 (>60) mL/min BUN/Creatinine Ratio 10.7 (6-22) Glucose 115 H (70-100) mg/dL Lactate (0.7-2.1) mmol/L Calcium 10.0 (8.4-10.2) mg/dL Total Bilirubin 0.9 (0.2-1.3) mg/dL AST 35 (17-59) IU/L ALT 23 (<50) IU/L Alkaline Phosphatase 89 (38-126) U/L Lactate Dehydrogenase (313-618) U/L Total Protein 8.5 H (6.3-8.2) g/dL Albumin 4.8 (3.5-5.0) g/dL Globulin 3.7 (1.7-4.1) g/dL Albumin/Globulin Ratio 1.3 (1.0-2.8) Lipase 244 (23-300) U/L Urine RBC (0-5/HPF) Urine WBC (0-5/HPF) Urine Bacteria (None) Ur Culture Indicated? Micro UA Comment 09/04/19 09/04/19 09/04/19 Range/Units 08:58 09:14 12:45 WBC (4.5-11.0) X10^3/uL RBC (4.5-5.9) X10^6/uL Hgb (13.5-17.5) g/dL Hct (41-53) % MCV (80-100) fL MCH (26-34) PG MCHC (30-36) % RDW (11.6-14.8) % Plt Count (150-400) X10^3/uL Neut % (Auto) (50-75) % Lymph % (Auto) (25-40) % Charles % (Auto) (3-14) % Eos % (Auto) (2-4) % Baso % (Auto) (0-2) % Neut # (Auto) (4260-7746) /uL Lymph # (Auto) (9402-9649) /uL Charles # (Auto) (0-900) /uL Eos # (Auto) (0-450) /uL Baso # (Auto) (0-100) /uL PT (10.1-12.7) SECONDS INR (0.9-1.3) APTT (26.4-36.2) SECONDS Sodium (137-145) mmol/L Potassium (3.4-5.1) mmol/L Chloride (98-107) mmol/L Carbon Dioxide (22-32) mmol/L BUN (9-20) mg/dL Creatinine (0.66-1.25) mg/dL Estimated GFR (>60) mL/min BUN/Creatinine Ratio (6-22) Glucose (70-100) mg/dL Lactate 2.1 (0.7-2.1) mmol/L Calcium (8.4-10.2) mg/dL Total Bilirubin (0.2-1.3) mg/dL AST (17-59) IU/L ALT (<50) IU/L Alkaline Phosphatase (38-126) U/L Lactate Dehydrogenase 565 (313-618) U/L Total Protein (6.3-8.2) g/dL Albumin (3.5-5.0) g/dL Globulin (1.7-4.1) g/dL Albumin/Globulin Ratio (1.0-2.8) Lipase (23-300) U/L Urine RBC None seen (0-5/HPF) Urine WBC None seen (0-5/HPF) Urine Bacteria None seen (None) Ur Culture Indicated? Cult not indicated Micro UA Comment Microscopic normal Point of care testing: Urine Dip Bedside Urine Glucose Negative Bedside Urine Bilirubin - Negative Bedside Urine Ketone +/- 5 Urine Specific [place] 1.005 Bedside Urine Occult Blood - Negative Bedside Urine pH 8.5 Bedside Urine Protein +/- 15 Bedside Urine Urobilinogen - Negative Bedside Urine Nitrite - Negative Bedside Urine Leukocytes - Negative Esterase Discharge Plan Departure Patient Disposition: Home Clinical Impression: Cyclical vomiting Discharge Date/Time: 09/04/19 13:38 Instructions: DI for Vomiting -- Adult, Nausea and Vomiting-Adult Activity Restrictions/Additional Instructions: 1. Your laboratory tests were all normal for your cyclical vomiting. 2. When you are having retching and vomiting spells during these episodes avoid marijuana has possible. 3. When the vomiting starts take 1-2 tablets of Zofran to try and control your vomiting. Then lay down and rest. 4. If the Zofran does not control your vomiting take 1-2 25 mg Benadryl tablets. 5. If this does not control your vomiting then take a 25 mg Compazine rectal suppository. You can take 2 of these per day. 6. If this does not control your vomiting you need to return to the emergency de partment to be re-evaluated for dehydration and possible IV fluids. 7. If you develop severe abdominal pain this passing-out fever or rectal bleeding or profuse diarrhea you need to return to the emergency department. 8. Otherwise you need to follow-up with your primary care physician. You should follow-up with them to be re-evaluated in 48-72 hours. 9. Start off with sips of water the and 1 sure keeping clear fluids down you can advance her diet as tolerated. Prescriptions: New ondansetron HCl [Zofran] 4 mg tablet 4 mg PO Q6H PRN (Reason: nausea and vomiting) Qty: 15 RF: 0 diphenhydramine HCl [Benadryl Allergy] 25 mg tablet 25 mg PO Q6H PRN (Reason: nausea and vomiting) Qty: 20 RF: 0 prochlorperazine [Compazine] 25 mg suppository [address] Q12H PRN (Reason: nausea and vomiting) Qty: 12 RF: 0 No Action ondansetron 4 mg tablet,disintegrating 4 mg PO Q8H Qty: 14 RF: 0 Xarelto 20 mg tablet 20 mg PO DAILY RF: 0 Referrals: Shakira Ramos MD [Primary Care Provider] -
--- NOTE | 2019-09-04 12:09 | PC.NURSE ---
pt complaining of sneezing and his nose being stuffy. Pt is now aware that oxygen via nasal cannula can dry out nose and that it is normal to have a stuffy nose. Per approval of RN pt is advised that he can leave the nasal cannula off as long as his o2 sat doesn't drop. Pt is currently at 99 on RA. Pt has call [facility] and is aware of surroundings
[2019-09-04 12:47] VITALS: BP 139/81; PULSE 74; RESP 16; O2SAT 99
[2019-09-04] MEDS: DICYCLOMINE 10 MG CAPSULE 20 MG PO (12:59)
[2019-09-04 13:13] LABS: Bacteria Urine None Seen; RBC Urine None Seen (0-5/HPF); WBC Urine None Seen (0-5/HPF)
[2019-09-04] MEDS: LORazepam 0.5 MG TABLET 1 MG PO (13:14)
[2019-09-04 13:19] VITALS: BP 124/87; PULSE 70; RESP 16; O2SAT 99
[2019-09-04 13:25] LABS: Culture Indicated Urine Cult Not Indicated; Urine Comments Microscopic Normal
== END 2019-09-04 13:38 | disposition home or self-care (01) ==
PROVIDERS: Emergency Provider Emergency Medicine; PCP Internal Medicine
DX: R11.15 Cyclical vomiting syndrome unrelated to migraine (principal)
CPT/HCPCS: 36415; 74022; 80053; 81003; 81015; 83605; 83615; 83690; 85025; 85610; 85730; 96361; 96374; 96375; 99285; J1200; J1885; J2060; J2405

== ENCOUNTER 2019-09-10 13:02 | Emergency (ER) | payer OTHER, MEDICAID, SELFPAY ==
[2019-09-10 13:08] VITALS: BP 117/77; PULSE 89; RESP 18; TEMP 37.5; O2SAT 100; BMI 23.7
[2019-09-10] MEDS: ONDANSETRON 4 MG ODT SL (14:45)
[2019-09-10 16:36] VITALS: BP 138/86; PULSE 77; RESP 16; TEMP 36.9; O2SAT 100
--- NOTE | 2019-09-10 17:06 | DI.RAD.S_ITS ---
PROCEDURE: XR ACUTE ABDOMEN SERIES INDICATIONS: abd pain, vomiting TECHNIQUE: One view chest and two views of the abdomen were acquired. COMPARISON: [facility], CR, XR ACUTE ABDOMEN SERIES, 09/04/2019, 8:18. FINDINGS: Surgical changes and devices: None. Chest: Lungs are clear. Heart size is normal. No pleural effusions. No pneumoperitoneum. Abdomen: Bowel gas pattern is normal. No suspicious calcifications. Visualized solid organ contours appear normal. Bones: No suspicious bony lesions. IMPRESSION: Normal for age, source of current pain and vomiting symptoms is not seen. Dictated by: Ruben Lewis M.D. on 09/10/2019 at 18:46 Approved by: Ruben Lewis M.D. on 09/10/2019 at 18:47
[2019-09-10] MEDS: SODIUM CHLORIDE 0.9% 1,000 ML 1000 ML IV ×2 (17:14→18:43)
[2019-09-10] MEDS: diphenhydrAMINE 50 MG/ML VIAL 25 MG IV (17:14)
[2019-09-10] MEDS: METOCLOPRAMIDE 10 MG/2 ML INJ IV (17:15)
[2019-09-10 17:16] LABS: Add Manual Diff / Slide Review NO; Basophils Absolute Auto 100 /uL (0-100); Basophils Percent Auto 0.3 % (0-2); Eosinophils Absolute Auto 100 /uL (0-450); Eosinophils Percent Auto 0.5 % (2-4); Hematocrit 45.5 % (41-53); Hemoglobin 15.5 g/dL (13.5-17.5); Lymphocytes Absolute Auto 1400 /uL (1100-4500); Lymphocytes Percent Auto 9.3 % (25-40); Mean Corpuscular HGB Conc 34.1 % (30-36); Mean Corpuscular Hemoglobin 27.2 PG (26-34); Mean Corpuscular Volume 79.9 fL (80-100); Monocytes Absolute Auto 1100 /uL (0-900); Monocytes Percent Auto 6.9 % (3-14); Neutrophils Absolute Auto 12800 /uL (1500-7000); Platelet Count 420 X10^3/uL (150-400); Red Cell Distribution Width 14.4 % (11.6-14.8); White Blood Cell Count 15.5 X10^3/uL (4.5-11.0)
[2019-09-10 17:22] LABS: Alanine Aminotransferase 15 IU/L (<50); Albumin 4.6 g/dL (3.5-5.0); Albumin Globulin Ratio 1.2 (1.0-2.8); Alkaline Phosphatase 85 U/L (38-126); Amylase 76 U/L (30-110); Aspartate Aminotransferase 42 IU/L (17-59); BUN Creatinine Ratio 7.1 (6-22); Bilirubin Total 0.9 mg/dL (0.2-1.3); Blood Urea Nitrogen 17 mg/dL (9-20); Calcium 9.5 mg/dL (8.4-10.2); Carbon Dioxide 26 mmol/L (22-32); Chloride 99 mmol/L (98-107); Globulin 3.7 g/dL (1.7-4.1); Glucose 104 mg/dL (70-100); HEMOLYSIS 16 (0-50); Lipase 97 U/L (23-300); Magnesium 2.6 mg/dL (1.6-2.3); Potassium 3.9 mmol/L (3.4-5.1); Sodium 136 mmol/L (137-145); Total Protein 8.3 g/dL (6.3-8.2)
[2019-09-10 18:07] LABS: Lactate (Lactic Acid) 1.3 mmol/L (0.7-2.1)
[2019-09-10 20:10] LABS: BUN Creatinine Ratio 8.1 (6-22); Blood Urea Nitrogen 16 mg/dL (9-20); Calcium 8.3 mg/dL (8.4-10.2); Carbon Dioxide 24 mmol/L (22-32); Chloride 105 mmol/L (98-107); Estimated Glomerular Filt Rate 40.7 mL/min (>60); Glucose 92 mg/dL (70-100); HEMOLYSIS < 15 (0-50); Potassium 3.9 mmol/L (3.4-5.1); Sodium 138 mmol/L (137-145)
[2019-09-10 20:31] LABS: UR Morphine/Opiate cutoff 300 Negative (Negative); Ur Creatinine 20 (Normal); Ur Specific Gravity 1.015 (Normal); Urine Amphetamines Negative (Negative); Urine Barbiturates Negative (Negative); Urine Benzodiazepines Negative (Negative); Urine Cocaine Positive (Negative); Urine MDMA Negative (Negative); Urine Methadone Negative (Negative); Urine Methamphetamines Negative (Negative); Urine Oxycodone Negative (Negative); Urine Phencyclidine Negative (Negative); Urine Tetrahydrocannabinol Negative (Negative); Urine Tricyclic Antidepressant Negative (Negative); Urine pH 5 (Normal)
[2019-09-10 20:39] VITALS: BP 139/74; PULSE 79; RESP 20; O2SAT 96
--- NOTE | 2019-09-10 20:51 | ED_ITS ---
HPI - Nausea/Vomiting/Diarrhea <JANET Diaz - Last Filed: 09/10/19 21:01> General Chief complaint: Nausea/Vomiting/Diarrhea Stated complaint: SEVERE ANXIETY, VOMITING Time Seen by Provider: 09/10/19 16:45 Source: patient Mode of arrival: Ambulatory Limitations: no limitations History of Present Illness HPI Narrative: The patient is a 28-year-old male current smoker with history of cyclic vomiting who presents with a chief complaint of an exacerbation of his cyclic vomiting syndrome. He was seen at this facility on 09/04/2019 with similar complaints. He states his stomach cramps when he is vomiting. He denies any fevers. He complains of nausea. Last bowel movement yesterday and normal. States that he has a history of cyclic vomiting syndrome related to PTSD with his service. He states that his primary care provider has been working with him. He also complains of anxiety today. He states that he ?huffed something earlier today. Related Data Home Medications Medication Instructions Recorded Confirmed rivaroxaban [Xarelto] 20 mg PO DAILY 09/04/19 09/04/19 Previous Rx's Medication Instructions Recorded ondansetron 4 mg PO Q8H #14 tab 06/01/19 diphenhydramine HCl [Benadryl 25 mg PO Q6H PRN #20 tab 09/04/19 Allergy] ondansetron HCl [Zofran] 4 mg PO Q6H PRN #15 tab 09/04/19 prochlorperazine [Compazine] [address] Q12H PRN #12 each 09/04/19 metoclopramide HCl 10 mg PO Q6H PRN #14 tab 09/10/19 ondansetron 4 mg PO Q6H PRN #20 tab 09/10/19 Allergies Allergy/AdvReac Type Severity Reaction Status Date / Time No Known Drug Allergies Allergy Verified 09/04/19 09:21 Review of Systems <JANET Diaz - Last Filed: 09/10/19 21:01> Review of Systems Narrative: GENERAL: Denies chills, fatigue, malaise, fever, sweats. HEENT: Denies sinus pain, ear pain, sore throat, difficulty swallowing, dizziness. RESPIRATORY: Denies dyspnea, cough, wheezing, hemoptysis, sputum. CARDIOVASCULAR: Denies chest pain, palpitations, orthopnea, edema, GASTROINTESTINAL: See HPI : Denies dysuria, frequency, incontinence, hematuria, urinary retention. MUSCULOSKELETAL: denies weakness, joint pain, or bony pain SKIN: Denies rash, skin lesions, or other NEUROLOGIC: Denies weakness, headache, numbness, change in speech, confusion, seizures, incoordination. PSYCHIATRIC: No concerning psychosocial issues. 12 point review of systems is negative except for those stated above Patient History <JANET Diaz - Last Filed: 09/10/19 21:01> Medical History Cyclic vomiting syndrome (Acute) Social History Smoking Status: Current every day smoker Smoking Status: Current every day smoker tobacco type: cigarettes alcohol intake frequency: 0-2 drinks per day Substance Use Type: marijuana Exam <JANET Diaz - Last Filed: 09/10/19 21:01> Narrative Exam Narrative: GENERAL: This is a well-nourished, well-developed patient, in no acute distress HEAD: Atraumatic. Normocephalic. No temporal or scalp tenderness. EYES: Pupils equal round and reactive. Extraocular motions intact. No scleral icterus. No injection or drainage. ENT: Nose without bleeding, purulent drainage or septal hematoma. Throat without erythema, tonsillar hypertrophy or exudate. Uvula midline. Airway patent. NECK: Trachea midline. No JVD or lymphadenopathy. Supple, nontender, no meningeal signs. CARDIOVASCULAR: Regular rate and rhythm RESPIRATORY: Clear to auscultation. Breath sounds equal bilaterally. No wheezes, rales, or rhonchi. No cough. No increased respiratory effort. No accessory muscle use. GASTROINTESTINAL: Abdomen soft, diffusely tender, nondistended. No hepato- splenomegaly, or palpable masses. No guarding. EXTREMITIES: No clubbing, cyanosis, or edema. No joint tenderness, effusion, or edema noted. BACK: Nontender without deformity or crepitance. No flank tenderness. NEURO: AOx3. SKIN: No rash or erythema. Initial Vital Signs Initial Vital Signs: Vital Signs Temperature 99.5 F 09/10/19 13:08 Pulse Rate 89 09/10/19 13:08 Respiratory Rate 18 09/10/19 13:08 Blood Pressure 117/77 09/10/19 13:08 Pulse Oximetry 100 09/10/19 13:08 <Vick Danielson DO - Last Filed: 09/10/19 22:27> Initial Vital Signs Initial Vital Signs: Vital Signs Temperature 99.5 F 09/10/19 13:08 Pulse Rate 89 09/10/19 13:08 Respiratory Rate 18 09/10/19 13:08 Blood Pressure 117/77 09/10/19 13:08 Pulse Oximetry 100 09/10/19 13:08 Scores <JANET Diaz - Last Filed: 09/10/19 21:01> GCS [place] coma scale eye opening: Spontaneous [place] coma scale verbal response: Orientated [place] coma scale motor response: Obey commands [place] coma scale total score: 15 Course <JANET Diaz - Last Filed: 09/10/19 21:01> Orders Ordered: ED Orders 09/10/19 16:48 Amylase Stat Complete Blood Count AUTO DIFF Stat Comprehensive Metabolic Panel Stat Lipase Stat Magnesium Stat 09/10/19 17:06 XR acute abdomen series Stat 09/10/19 17:38 Lactate (Lactic Acid) Stat 09/10/19 19:50 Basic Metabolic Panel Stat 09/10/19 20:18 Urine Drug Screen, Rapid Stat Discontinued Medications Diphenhydramine HCl (Benadryl) 25 mg IV NOW ONE Stop: 09/10/19 17:07 Last Admin: 09/10/19 17:14 Dose: 25 mg Documented by: BUCK Sodium Chloride (Normal Saline 0.9%) 1,000 mls @ 1,000 mls/hr IV BOLUS ONE Stop: 09/10/19 18:05 Last Infusion: 09/10/19 18:16 Dose: 0 mls/hr Documented by: Admin: 09/10/19 17:14 Dose: 1,000 mls/hr Documented by: BSMEN Sodium Chloride (Normal Saline 0.9%) 1,000 mls @ 1,000 mls/hr IV BOLUS ONE Stop: 09/10/19 19:34 Last Infusion: 09/10/19 19:40 Dose: 0 mls/hr Documented by: Admin: 09/10/19 18:43 Dose: 1,000 mls/hr Documented by: BUCK Metoclopramide HCl (Reglan) 10 mg IV NOW ONE Stop: 09/10/19 17:07 Last Admin: 09/10/19 17:15 Dose: 10 mg Documented by: BUCK Ondansetron HCl (Zofran Odt) 4 mg SL NOW ONE Stop: 09/10/19 14:41 Last Admin: 09/10/19 14:45 Dose: 4 mg Documented by: CHATO Ondansetron HCl (Zofran Odt Prepack) 1 bottle MISC SEEINSTR ONE Stop: 09/10/19 20:45 Last Admin: 09/10/19 21:03 Dose: 1 bottle Documented by: BUCK Vital Signs Vital signs: Vital Signs - 8 hr 09/10/19 16:36 09/10/19 20:39 Temperature 98.5 F Pulse Rate 77 79 Respiratory Rate 16 20 Blood Pressure [Left Arm] 138/86 139/74 Pulse Oximetry 100 96 <Vick Danielson DO - Last Filed: 09/10/19 22:27> Orders Ordered: ED Orders 09/10/19 16:48 Amylase Stat Complete Blood Count AUTO DIFF Stat Comprehensive Metabolic Panel Stat Lipase Stat Magnesium Stat 09/10/19 17:06 XR acute abdomen series Stat 09/10/19 17:38 Lactate (Lactic Acid) Stat 09/10/19 19:50 Basic Metabolic Panel Stat 09/10/19 20:18 Urine Drug Screen, Rapid Stat Discontinued Medications Diphenhydramine HCl (Benadryl) 25 mg IV NOW ONE Stop: 09/10/19 17:07 Last Admin: 09/10/19 17:14 Dose: 25 mg Documented by: BUCK Sodium Chloride (Normal Saline 0.9%) 1,000 mls @ 1,000 mls/hr IV BOLUS ONE Stop: 09/10/19 18:05 Last Infusion: 09/10/19 18:16 Dose: 0 mls/hr Documented by: Admin: 09/10/19 17:14 Dose: 1,000 mls/hr Documented by: BUCK Sodium Chloride (Normal Saline 0.9%) 1,000 mls @ 1,000 mls/hr IV BOLUS ONE Stop: 09/10/19 19:34 Last Infusion: 09/10/19 19:40 Dose: 0 mls/hr Documented by: Admin: 09/10/19 18:43 Dose: 1,000 mls/hr Documented by: BUCK Metoclopramide HCl (Reglan) 10 mg IV NOW ONE Stop: 09/10/19 17:07 Last Admin: 09/10/19 17:15 Dose: 10 mg Documented by: BUCK Ondansetron HCl (Zofran Odt) 4 mg SL NOW ONE Stop: 09/10/19 14:41 Last Admin: 09/10/19 14:45 Dose: 4 mg Documented by: CHATO Ondansetron HCl (Zofran Odt Prepack) 1 bottle MISC SEEINSTR ONE Stop: 09/10/19 20:45 Last Admin: 09/10/19 21:03 Dose: 1 bottle Documented by: BUCK Vital Signs Vital signs: Vital Signs - 8 hr 09/10/19 16:36 09/10/19 20:39 Temperature 98.5 F Pulse Rate 77 79 Respiratory Rate 16 20 Blood Pressure [Left Arm] 138/86 139/74 Pulse Oximetry 100 96 MDM - Nausea/Vomiting/Diarrhea <FELIPA Diaz - Last Filed: 09/10/19 21:01> Lab Data Result diagrams: 09/10/19 16:48 09/10/19 19:50 Labs: Lab Results 09/10/19 09/10/19 09/10/19 Range/Units 16:48 16:48 17:38 WBC 15.5 H (4.5-11.0) X10^3/uL RBC 5.70 (4.5-5.9) X10^6/uL Hgb 15.5 (13.5-17.5) g/dL Hct 45.5 (41-53) % MCV 79.9 L (80-100) fL MCH 27.2 (26-34) PG MCHC 34.1 (30-36) % RDW 14.4 (11.6-14.8) % Plt Count 420 H (150-400) X10^3/uL Neut % (Auto) 83.0 H (50-75) % Lymph % (Auto) 9.3 L (25-40) % [place] % (Auto) 6.9 (3-14) % Eos % (Auto) 0.5 L (2-4) % Baso % (Auto) 0.3 (0-2) % Neut # (Auto) 63312 H (5435-2317) /uL Lymph # (Auto) 1400 (5269-9104) /uL [place] # (Auto) 1100 H (0-900) /uL Eos # (Auto) 100 (0-450) /uL Baso # (Auto) 100 (0-100) /uL Sodium 136 L (137-145) mmol/L Potassium 3.9 (3.4-5.1) mmol/L Chloride 99 (98-107) mmol/L Carbon Dioxide 26 (22-32) mmol/L BUN 17 (9-20) mg/dL Creatinine 2.38 H (0.66-1.25) mg/dL Estimated GFR 33.0 L (>60) mL/min BUN/Creatinine Ratio 7.1 (6-22) Glucose 104 H (70-100) mg/dL Lactate 1.3 (0.7-2.1) mmol/L Calcium 9.5 (8.4-10.2) mg/dL Magnesium 2.6 H (1.6-2.3) mg/dL Total Bilirubin 0.9 (0.2-1.3) mg/dL AST 42 (17-59) IU/L ALT 15 (<50) IU/L Alkaline Phosphatase 85 (38-126) U/L Total Protein 8.3 H (6.3-8.2) g/dL Albumin 4.6 (3.5-5.0) g/dL Globulin 3.7 (1.7-4.1) g/dL Albumin/Globulin Ratio 1.2 (1.0-2.8) Amylase 76 (30-110) U/L Lipase 97 D (23-300) U/L U Opiates 300ng/mL cut (Negative) Ur Oxycodone Screen (Negative) Urine Methadone Screen (Negative) Ur Barbiturates Screen (Negative) U Tricyclic Antidepress (Negative) Ur Phencyclidine Scrn (Negative) Ur Amphetamines Screen (Negative) U Methamphetamines Scrn (Negative) Ur MDMA Scrn (Ecstasy) (Negative) U Benzodiazepines Scrn (Negative) Urine Cocaine Screen (Negative) U Marijuana (THC) Screen (Negative) 09/10/19 09/10/19 Range/Units 19:50 20:18 WBC (4.5-11.0) X10^3/uL RBC (4.5-5.9) X10^6/uL Hgb (13.5-17.5) g/dL Hct (41-53) % MCV (80-100) fL MCH (26-34) PG MCHC (30-36) % RDW (11.6-14.8) % Plt Count (150-400) X10^3/uL Neut % (Auto) (50-75) % Lymph % (Auto) (25-40) % [place] % (Auto) (3-14) % Eos % (Auto) (2-4) % Baso % (Auto) (0-2) % Neut # (Auto) (2665-2409) /uL Lymph # (Auto) (4494-6473) /uL [place] # (Auto) (0-900) /uL Eos # (Auto) (0-450) /uL Baso # (Auto) (0-100) /uL Sodium 138 (137-145) mmol/L Potassium 3.9 (3.4-5.1) mmol/L Chloride 105 (98-107) mmol/L Carbon Dioxide 24 (22-32) mmol/L BUN 16 (9-20) mg/dL Creatinine 1.98 H (0.66-1.25) mg/dL Estimated GFR 40.7 L (>60) mL/min BUN/Creatinine Ratio 8.1 (6-22) Glucose 92 (70-100) mg/dL Lactate (0.7-2.1) mmol/L Calcium 8.3 L (8.4-10.2) mg/dL Magnesium (1.6-2.3) mg/dL Total Bilirubin (0.2-1.3) mg/dL AST (17-59) IU/L ALT (<50) IU/L Alkaline Phosphatase (38-126) U/L Total Protein (6.3-8.2) g/dL Albumin (3.5-5.0) g/dL Globulin (1.7-4.1) g/dL Albumin/Globulin Ratio (1.0-2.8) Amylase (30-110) U/L Lipase (23-300) U/L U Opiates 300ng/mL cut Negative (Negative) Ur Oxycodone Screen Negative (Negative) Urine Methadone Screen Negative (Negative) Ur Barbiturates Screen Negative (Negative) U Tricyclic Antidepress Negative (Negative) Ur Phencyclidine Scrn Negative (Negative) Ur Amphetamines Screen Negative (Negative) U Methamphetamines Scrn Negative (Negative) Ur MDMA Scrn (Ecstasy) Negative (Negative) U Benzodiazepines Scrn Negative (Negative) Urine Cocaine Screen Positive H (Negative) U Marijuana (THC) Screen Negative (Negative) Imaging Data Abdominal x-ray: Radiologist's Impression: [address] [place] [id number] XRay Report Signed Patient: Sajan Gongora LMR#: [id number] : 1990Acct:[id number] Age/Sex: MDate of Service: 09/10/19 Loc: ED Accession Number: [id number] Procedure: XR acute abdomen series Ordering Provider: Naomi Singh PROCEDURE: XR ACUTE ABDOMEN SERIES INDICATIONS: abd pain, vomiting TECHNIQUE: One view chest and two views of the abdomen were acquired. COMPARISON: [facility], , XR ACUTE ABDOMEN SERIES, 09/04/2019, 8:18. FINDINGS: Surgical changes and devices: None. Chest: Lungs are clear. Heart size is normal. No pleural effusions. No pneumoperitoneum. Abdomen: Bowel gas pattern is normal. No suspicious calcifications. Visualized solid organ contours appear normal. Bones: No suspicious bony lesions. IMPRESSION: Normal for age, source of current pain and vomiting symptoms is not seen. Dictated by: Ruben Lewis M.D. on 09/10/2019 at 18:46 Approved by: Ruben Lewis M.D. on 09/10/2019 at 18:47 [facility] [place] Narrative Medical decision making narrative: The patient is a 28-year-old male who presents with a chief complaint of cyclic vomiting syndrome. He is able to keep down fluids and ice after receiving 2 L IV fluid as well as antiemetics as documented. He is able to sleep and feels overall much improved. The patient's creatinine was noted to increase since his last emergency department visit, but quickly decreased to below 2 after 2 L of IV fluid. The patient requested that he be discharged, does not want to stay in the hospital today. I spoke with Dr. Danielson regarding this, and we found to be appropriate to discharge him. The patient is hemodynamically stable, nontoxic. Does not have an acute abdomen on exam. He was given prescriptions of Zofran and Reglan. Discussed at length the importance of following up with primary care provider the next few days as well as come back to the emergency department for any acute concerns. Of note the patient did request that I refill his bottle of Xanax as he states he misplaced it, and I referred him back to the provider who prescribed. The patient does have an [facility] report that shows 60 tablets of clonazepam were dispensed on 08/31/2019. Of note the patient's drug screen was positive for cocaine, which could have increased is nausea and vomiting today and lead to generalized abdominal discomfort and anxiety. I encouraged him to not use cocaine in the future. Patient has no questions or concerns upon discharge and states understanding of return precautions as well as follow-up care. <Vick Danielson, DO - Last Filed: 09/10/19 22:27> Lab Data Labs: Lab Results 09/10/19 09/10/19 09/10/19 Range/Units 16:48 16:48 17:38 WBC 15.5 H (4.5-11.0) X10^3/uL RBC 5.70 (4.5-5.9) X10^6/uL Hgb 15.5 (13.5-17.5) g/dL Hct 45.5 (41-53) % MCV 79.9 L (80-100) fL MCH 27.2 (26-34) PG MCHC 34.1 (30-36) % RDW 14.4 (11.6-14.8) % Plt Count 420 H (150-400) X10^3/uL Neut % (Auto) 83.0 H (50-75) % Lymph % (Auto) 9.3 L (25-40) % [place] % (Auto) 6.9 (3-14) % Eos % (Auto) 0.5 L (2-4) % Baso % (Auto) 0.3 (0-2) % Neut # (Auto) 23076 H (3159-7637) /uL Lymph # (Auto) 1400 (2710-6225) /uL [place] # (Auto) 1100 H (0-900) /uL Eos # (Auto) 100 (0-450) /uL Baso # (Auto) 100 (0-100) /uL Sodium 136 L (137-145) mmol/L Potassium 3.9 (3.4-5.1) mmol/L Chloride 99 (98-107) mmol/L Carbon Dioxide 26 (22-32) mmol/L BUN 17 (9-20) mg/dL Creatinine 2.38 H (0.66-1.25) mg/dL Estimated GFR 33.0 L (>60) mL/min BUN/Creatinine Ratio 7.1 (6-22) Glucose 104 H (70-100) mg/dL Lactate 1.3 (0.7-2.1) mmol/L Calcium 9.5 (8.4-10.2) mg/dL Magnesium 2.6 H (1.6-2.3) mg/dL Total Bilirubin 0.9 (0.2-1.3) mg/dL AST 42 (17-59) IU/L ALT 15 (<50) IU/L Alkaline Phosphatase 85 (38-126) U/L Total Protein 8.3 H (6.3-8.2) g/dL Albumin 4.6 (3.5-5.0) g/dL Globulin 3.7 (1.7-4.1) g/dL Albumin/Globulin Ratio 1.2 (1.0-2.8) Amylase 76 (30-110) U/L Lipase 97 D (23-300) U/L U Opiates 300ng/mL cut (Negative) Ur Oxycodone Screen (Negative) Urine Methadone Screen (Negative) Ur Barbiturates Screen (Negative) U Tricyclic Antidepress (Negative) Ur Phencyclidine Scrn (Negative) Ur Amphetamines Screen (Negative) U Methamphetamines Scrn (Negative) Ur MDMA Scrn (Ecstasy) (Negative) U Benzodiazepines Scrn (Negative) Urine Cocaine Screen (Negative) U Marijuana (THC) Screen (Negative) 09/10/19 09/10/19 Range/Units 19:50 20:18 WBC (4.5-11.0) X10^3/uL RBC (4.5-5.9) X10^6/uL Hgb (13.5-17.5) g/dL Hct (41-53) % MCV (80-100) fL MCH (26-34) PG MCHC (30-36) % RDW (11.6-14.8) % Plt Count (150-400) X10^3/uL Neut % (Auto) (50-75) % Lymph % (Auto) (25-40) % [place] % (Auto) (3-14) % Eos % (Auto) (2-4) % Baso % (Auto) (0-2) % Neut # (Auto) (2241-2473) /uL Lymph # (Auto) (6227-9101) /uL [place] # (Auto) (0-900) /uL Eos # (Auto) (0-450) /uL Baso # (Auto) (0-100) /uL Sodium 138 (137-145) mmol/L Potassium 3.9 (3.4-5.1) mmol/L Chloride 105 (98-107) mmol/L Carbon Dioxide 24 (22-32) mmol/L BUN 16 (9-20) mg/dL Creatinine 1.98 H (0.66-1.25) mg/dL Estimated GFR 40.7 L (>60) mL/min BUN/Creatinine Ratio 8.1 (6-22) Glucose 92 (70-100) mg/dL Lactate (0.7-2.1) mmol/L Calcium 8.3 L (8.4-10.2) mg/dL Magnesium (1.6-2.3) mg/dL Total Bilirubin (0.2-1.3) mg/dL AST (17-59) IU/L ALT (<50) IU/L Alkaline Phosphatase (38-126) U/L Total Protein (6.3-8.2) g/dL Albumin (3.5-5.0) g/dL Globulin (1.7-4.1) g/dL Albumin/Globulin Ratio (1.0-2.8) Amylase (30-110) U/L Lipase (23-300) U/L U Opiates 300ng/mL cut Negative (Negative) Ur Oxycodone Screen Negative (Negative) Urine Methadone Screen Negative (Negative) Ur Barbiturates Screen Negative (Negative) U Tricyclic Antidepress Negative (Negative) Ur Phencyclidine Scrn Negative (Negative) Ur Amphetamines Screen Negative (Negative) U Methamphetamines Scrn Negative (Negative) Ur MDMA Scrn (Ecstasy) Negative (Negative) U Benzodiazepines Scrn Negative (Negative) Urine Cocaine Screen Positive H (Negative) U Marijuana (THC) Screen Negative (Negative) Discharge Plan Departure Patient Disposition: Home Clinical Impression: Cyclical vomiting Discharge Date/Time: 09/10/19 21:06 Instructions: DI for Nausea -- Adult, DI for Vomiting -- Adult Activity Restrictions/Additional Instructions: Thank you for trusting us with your care today. I have 2 nausea medication prescriptions for you, and we are sending her home with a take-home pack of Zofran for nausea. Please follow-up with primary care provider in the next few days. You will need repeat lab work and further evaluation. As I discussed, your urine tested positive for cocaine. Please do not use cocaine as it can lead to upset stomach as well as worse anxiety. As discussed, I cannot replace the controlled medication that you lost. Please follow-up with prescriber for that medication. Prescriptions: New ondansetron 4 mg tablet,disintegrating 4 mg PO Q6H PRN (Reason: nausea and vomiting) Qty: 20 RF: 0 metoclopramide HCl 10 mg tablet 10 mg PO Q6H PRN (Reason: nausea and vomiting) Qty: 14 RF: 0 No Action ondansetron 4 mg tablet,disintegrating 4 mg PO Q8H Qty: 14 RF: 0 Xarelto 20 mg tablet 20 mg PO DAILY RF: 0 ondansetron HCl [Zofran] 4 mg tablet 4 mg PO Q6H PRN (Reason: nausea and vomiting) Qty: 15 RF: 0 diphenhydramine HCl [Benadryl Allergy] 25 mg tablet 25 mg PO Q6H PRN (Reason: nausea and vomiting) Qty: 20 RF: 0 prochlorperazine [Compazine] 25 mg suppository [address] Q12H PRN (Reason: nausea and vomiting) Qty: 12 RF: 0 Referrals: Shakira Ramos MD [Primary Care Provider] - <Vick Danielson DO - Last Filed: 09/10/19 22:27> [facility]: Dr Danielson Co-Sign Statement: I was available for consultation during this patient's emergency department visit. This chart is signed by myself for administrative purposes only. I did not have direct contact with this patient during this visit. They were seen independently by the APC.
[2019-09-10] MEDS: ONDANSETRON 4 MG ODT PREPACK 1 BOTTLE MISC (21:03)
== END 2019-09-10 21:06 | disposition home or self-care (01) ==
PROVIDERS: Emergency Provider Nurse Practitioner Family; PCP Internal Medicine
DX: R11.15 Cyclical vomiting syndrome unrelated to migraine (principal); R10.9 Unspecified abdominal pain; F43.10 Post-traumatic stress disorder, unspecified; F41.9 Anxiety disorder, unspecified
CPT/HCPCS: 36415; 74022; 80048; 80053; 80305; 82150; 83605; 83690; 83735; 85025; 96361; 96374; 96375; 99284; J1200; J2765

== ENCOUNTER 2019-09-19 02:16 | Emergency (ER) | payer OTHER, MEDICAID, SELFPAY ==
--- NOTE | 2019-09-19 02:19 | ED_ITS ---
HPI - General Adult General Chief complaint: Abdominal Pain Stated complaint: Panic attack Time Seen by Provider: 09/19/19 02:16 Source: patient and EMS Mode of arrival: EMS Limitations: no limitations History of Present Illness HPI narrative: 28-year-old male with a history of cyclic vomiting syndrome and also anxiety here for evaluation of an anxiety attack. He states that his anxiety intact started yesterday morning when he woke up. He states that the anxiety started secondary to the cyclic vomiting issues and also his abdominal pain. He did do some cocaine to try to relieve the anxiety. He also mentioned to EMS that he smokes some marijuana. Upon my evaluation patient was reluctant/unable to provide much HPI other than his stomach hurt and that he was in the throes of a panic attack and was very nauseous. Related Data Home Medications Medication Instructions Recorded Confirmed rivaroxaban [Xarelto] 20 mg PO DAILY 09/04/19 09/04/19 Previous Rx's Medication Instructions Recorded ondansetron 4 mg PO Q8H #14 tab 06/01/19 diphenhydramine HCl [Benadryl 25 mg PO Q6H PRN #20 tab 09/04/19 Allergy] ondansetron HCl [Zofran] 4 mg PO Q6H PRN #15 tab 09/04/19 prochlorperazine [Compazine] 25 mg MA Q12H PRN #12 each 09/04/19 metoclopramide HCl 10 mg PO Q6H PRN #14 tab 09/10/19 ondansetron 4 mg PO Q6H PRN #20 tab 09/10/19 Allergies Allergy/AdvReac Type Severity Reaction Status Date / Time No Known Drug Allergies Allergy Verified 09/19/19 02:27 Review of Systems Constitutional Constitutional: Denies headache(s) ENT Ears, Nose, Mouth, and Throat: Denies headache(s) Cardiovascular Cardiovascular: Denies chest pain and Denies dyspnea Respiratory Respiratory: Denies dyspnea Gastrointestinal Gastrointestinal: Reports abdominal pain, Reports nausea and Reports vomiting Neurologic Neurologic: Denies headache(s) Psychiatric Psychiatric: Reports anxiety and Reports panic attacks Patient History Medical History Anxiety (Acute) Cyclic vomiting syndrome (Acute) Drug abuse (Acute) Social History (Reviewed 09/19/19 @ 04:36 by MICAH Desouza Smoking Status: Current every day smoker Smoking Status: Current every day smoker tobacco type: cigarettes alcohol intake frequency: 0-2 drinks per day Substance Use Type: marijuana Exam Initial Vital Signs Initial Vital Signs: Vital Signs Temperature 99.7 F H 09/19/19 02:20 Pulse Rate 88 09/19/19 02:20 Respiratory Rate 24 09/19/19 02:20 Blood Pressure 141/95 H 09/19/19 02:20 Pulse Oximetry 98 09/19/19 02:20 Const General: No comfortable and acute distress Limitations: mental status not altered HENWI Head: normal to inspection, normocephalic and atraumatic Resp Effort & Inspection: normal respiratory effort Cardio Rate: regular rate GI Inspection: non-distended Skin Lesions: no lesions Rashes: no rashes Psych Appearance: disheveled Speech and Movement: pressured speech and restless Mood: anxious mood Affect: animated and anxious affect Attitude: refuses to answer Course Orders Ordered: Discontinued Medications Sodium Chloride (Normal Saline 0.9%) 1,000 mls @ 1,000 mls/hr IV BOLUS ONE Stop: 09/19/19 03:18 Last Infusion: 09/19/19 03:27 Dose: 0 mls/hr Documented by: Admin: 09/19/19 02:26 Dose: 1,000 mls/hr Documented by: FRANCIS Lidocaine/Epinephrine (Xylocaine 1% W/Epi) 1 ml SUBCUT NOW ONE Stop: 09/19/19 02:50 Last Admin: 09/19/19 04:16 Dose: Not Given Documented by: SEVERINO Lorazepam (Ativan) 1 mg IV NOW ONE Stop: 09/19/19 02:20 Last Admin: 09/19/19 02:26 Dose: 1 mg Documented by: FRANCIS Metoclopramide HCl (Reglan) 10 mg IV NOW ONE Stop: 09/19/19 02:23 Last Admin: 09/19/19 02:29 Dose: 10 mg Documented by: FRANCIS Ondansetron HCl (Zofran) 4 mg IV NOW ONE Stop: 09/19/19 02:45 Last Admin: 09/19/19 02:48 Dose: 4 mg Documented by: SEVERINO Vital Signs Vital signs: Vital Signs - 8 hr 09/19/19 02:20 09/19/19 05:56 Temperature 99.7 F H Pulse Rate 88 80 Respiratory Rate 24 18 Blood Pressure 141/95 H 157/90 H Pulse Oximetry 98 98 Medical Decision Making MDM Narrative Medical decision making narrative: Patient received multiple doses of nausea medication and Ativan and was able to sleep. The seem to improve/resolve his symptoms. I feel that we could hold on any microbiological laboratory technician any further workup here in the ER. Will discharge patient home with instructions to follow up with primary provider. Discharge Plan Departure Patient Disposition: Home Clinical Impression: Anxiety Instructions: DI for Anxiety -- Adult Activity Restrictions/Additional Instructions: Recommend you continue all of your medications as directed. I highly recommend that you stop using cocaine. This drug will not help with your anxiety and could potentially make your symptoms worse. Contact your primary provider for follow-up. If you do not have a primary provider you can contact the health resources coordinator at [phone]. This individual can help you establish a primary provider here in the area. Prescriptions: No Action ondansetron 4 mg tablet,disintegrating 4 mg PO Q6H PRN (Reason: nausea and vomiting) Qty: 20 RF: 0 metoclopramide HCl 10 mg tablet 10 mg PO Q6H PRN (Reason: nausea and vomiting) Qty: 14 RF: 0 ondansetron 4 mg tablet,disintegrating 4 mg PO Q8H Qty: 14 RF: 0 Xarelto 20 mg tablet 20 mg PO DAILY RF: 0 ondansetron HCl [Zofran] 4 mg tablet 4 mg PO Q6H PRN (Reason: nausea and vomiting) Qty: 15 RF: 0 diphenhydramine HCl [Benadryl Allergy] 25 mg tablet 25 mg PO Q6H PRN (Reason: nausea and vomiting) Qty: 20 RF: 0 prochlorperazine [Compazine] 25 mg suppository 25 mg MA Q12H PRN (Reason: nausea and vomiting) Qty: 12 RF: 0 Referrals: Shakira Ramos MD [Primary Care Provider] -
[2019-09-19 02:20] VITALS: BP 141/95; PULSE 88; RESP 24; TEMP 37.6; O2SAT 98; BMI 23.7
[2019-09-19] MEDS: SODIUM CHLORIDE 0.9% 1,000 ML 1000 ML IV (02:26)
[2019-09-19] MEDS: LORazepam 2 MG/ML INJ 1 MG IV (02:26)
[2019-09-19] MEDS: METOCLOPRAMIDE 10 MG/2 ML INJ IV (02:29)
[2019-09-19] MEDS: ONDANSETRON 4 MG/2 ML INJ IV (02:48)
[2019-09-19 05:56] VITALS: BP 157/90; PULSE 80; RESP 18; O2SAT 98
[2019-09-19] MEDS: ONDANSETRON 4 MG ODT PREPACK 1 BOTTLE MISC (06:48)
[2019-09-19] MEDS: ONDANSETRON 4 MG ODT SL (06:49)
[2019-09-19 06:55] VITALS: BP 162/92; PULSE 88; RESP 20; O2SAT 98
== END 2019-09-19 07:06 | disposition home or self-care (01) ==
PROVIDERS: Emergency Provider Emergency Medicine; PCP Internal Medicine
DX: F41.0 Panic disorder [episodic paroxysmal anxiety] (principal); R10.9 Unspecified abdominal pain; R11.2 Nausea with vomiting, unspecified
CPT/HCPCS: 36415; 96361; 96374; 96375; 99284; J2060; J2405; J2765

== ENCOUNTER 2021-02-02 15:44 | Emergency (ER) | payer OTHER, MEDICAID, SELFPAY ==
[2021-02-02 15:51] VITALS: BP 202/108; PULSE 97; RESP 20; TEMP 36.6; O2SAT 100; BMI 25.0
[2021-02-02 17:33] LABS: Bacteria Urine None Seen; Culture Indicated Urine Cult Not Indicated; RBC Urine 0-1/HPF (0-5/HPF); WBC Urine 0-1/HPF (0-5/HPF)
[2021-02-02 17:34] LABS: Hyaline Casts Urine 10-30/LPF; UR Morphine/Opiate cutoff 300 Negative (Negative); Ur Creatinine Normal (Normal); Ur Specific Gravity Normal (Normal); Urine Amphetamines Negative (Negative); Urine Barbiturates Negative (Negative); Urine Benzodiazepines Negative (Negative); Urine Cocaine Positive (Negative); Urine MDMA Negative (Negative); Urine Methadone Negative (Negative); Urine Methamphetamines Negative (Negative); Urine Oxycodone Negative (Negative); Urine Phencyclidine Negative (Negative); Urine Tetrahydrocannabinol Positive (Negative); Urine Tricyclic Antidepressant Positive (Negative); Urine pH Normal (Normal)
--- NOTE | 2021-02-02 18:43 | ED_ITS ---
HPI - Nausea/Vomiting/Diarrhea General Chief complaint: Nausea/Vomiting/Diarrhea Stated complaint: throwing up x2 days Time Seen by Provider: 02/02/21 18:43 Source: patient Mode of arrival: Wheelchair History of Present Illness HPI Narrative: 30-year-old male daily smoker with history of anxiety and cyclical vomiting presents with a chief complaint of persistent vomiting since 7:00 p.m. yesterday. The patient states that his typical trigger is anxiety and he thinks it was likely because he started a new job today. His last episode was a few months ago. He denies any change in medications or diet. He occasionally uses THC but not daily. He has no blood in his vomit. He denies any alcohol. He denies any fever or chills Related Data Previous Rx's Medication Instructions Recorded ondansetron 4 mg disintegrating 4 mg PO Q8H #14 tab 06/01/19 tablet diphenhydramine HCl 25 mg tablet 25 mg PO Q6H PRN #20 tab 09/04/19 (Benadryl Allergy) ondansetron HCl 4 mg tablet 4 mg PO Q6H PRN #15 tab 09/04/19 (Zofran) prochlorperazine 25 mg rectal 25 mg LA Q12H PRN #12 each 09/04/19 suppository (Compazine) metoclopramide HCl 10 mg tablet 10 mg PO Q6H PRN #14 tab 09/10/19 ondansetron 4 mg disintegrating 4 mg PO Q6H PRN #20 tab 09/10/19 tablet Allergies Allergy/AdvReac Type Severity Reaction Status Date / Time No Known Drug Allergies Allergy Verified 02/02/21 15:54 Review of Systems Review of Systems Narrative: GENERAL: See HPI HEENT: Denies sinus pain, ear pain, sore throat, difficulty swallowing, dizziness. RESPIRATORY: Denies dyspnea, cough, wheezing, hemoptysis, sputum. CARDIOVASCULAR: Denies chest pain, palpitations, orthopnea, edema, GASTROINTESTINAL: See HPI : Denies dysuria, frequency, incontinence, hematuria, urinary retention. MUSCULOSKELETAL: denies weakness, joint pain, or bony pain SKIN: Denies rash, skin lesions, or other NEUROLOGIC: Denies weakness, headache, numbness, change in speech, confusion, seizures, incoordination. PSYCHIATRIC: See HPI 12 point review of systems is negative except for those stated above Patient History Medical History (Updated 02/02/21 @ 20:05 by Aristides Alexander DO) Anxiety Cyclic vomiting syndrome Drug abuse Social History Smoking Status: Current every day smoker Smoking Status: Current every day smoker tobacco type: cigarettes alcohol intake frequency: holidays/special occasions only Substance Use Type: marijuana, crack/cocaine and inhalants Exam Narrative Exam Narrative: GENERAL: [30 year old patient appears stated age. Well-developed patient, in distress, obviously anxious, holding an emesis bag. HEAD: Atraumatic. Normocephalic. EYES: Pupils equal round and reactive. Extraocular motions intact. No scleral icterus. No injection or drainage. ENT: Nose without bleeding, purulent drainage. Throat without erythema, tonsillar hypertrophy or exudate. Airway patent. NECK: Trachea midline. Non tender CARDIOVASCULAR: Regular rate and rhythm without murmurs, gallops, or rubs. RESPIRATORY: Clear to auscultation. Breath sounds equal bilaterally. No wheezes, rales, or rhonchi. GASTROINTESTINAL: Abdomen soft, non-tender, nondistended. EXTREMITIES: No edema or joint tenderness. BACK: Nontender without deformity or crepitance. No flank tenderness. NEURO: AOx3. SKIN: No rash or erythema of visible areas Initial Vital Signs Initial Vital Signs: Vital Signs Temperature 98 F 02/02/21 15:51 Pulse Rate 97 H 02/02/21 15:51 Respiratory Rate 20 02/02/21 15:51 Blood Pressure 202/108 H 02/02/21 15:51 Pulse Oximetry 100 02/02/21 15:51 Course Orders Ordered: Discontinued Medications Sodium Chloride (Normal Saline 0.9%) 1,000 mls @ 1,000 mls/hr IV BOLUS ONE Stop: 02/02/21 16:53 Last Infusion: 02/02/21 20:40 Dose: 0 mls/hr Documented by: Admin: 02/02/21 19:19 Dose: 1,000 mls/hr Documented by: COLEMAN Lorazepam (Lorazepam 2 Mg/Ml Inj) 1 mg IV NOW ONE Stop: 02/02/21 18:44 Last Admin: 02/02/21 19:19 Dose: 1 mg Documented by: COLEMAN Ondansetron HCl (Ondansetron 4 Mg/2 Ml Inj) 4 mg IV NOW ONE Stop: 02/02/21 15:55 Last Admin: 02/02/21 19:19 Dose: 4 mg Documented by: COLEMAN Pantoprazole Sodium (Pantoprazole 40 Mg Vial) 40 mg IV NOW ONE Stop: 02/02/21 18:44 Last Admin: 02/02/21 19:19 Dose: 40 mg Documented by: COLEMAN Reevaluation(s) Reevaluation #1: With above-stated therapies Vital Signs Vital signs: Vital Signs - 8 hr 02/02/21 15:51 Temperature 98 F Pulse Rate 97 H Respiratory Rate 20 Blood Pressure 202/108 H Pulse Oximetry 100 MDM - Nausea/Vomiting/Diarrhea Lab Data Result diagrams: 02/02/21 19:20 02/02/21 19:20 Labs: Lab Results 02/02/21 02/02/21 02/02/21 Range/Units 16:48 16:48 19:20 WBC 17.8 H (4.5-11.0) X10^3/uL RBC 5.88 (4.5-5.9) X10^6/uL Hgb 15.5 (13.5-17.5) g/dL Hct 45.4 (41-53) % MCV 77.2 L (80-100) fL MCH 26.3 (26-34) PG MCHC 34.0 (30-36) % RDW 13.9 (11.6-14.8) % Plt Count 323 (150-400) X10^3/uL Neut % (Auto) 85.9 H (50-75) % Lymph % (Auto) 9.0 L (25-40) % Frederick % (Auto) 4.8 (3-14) % Eos % (Auto) 0.0 L (2-4) % Baso % (Auto) 0.3 (0-2) % Neut # (Auto) 60428 H (7997-3436) /uL Lymph # (Auto) 1600 (7530-5162) /uL Frederick # (Auto) 800 (0-900) /uL Eos # (Auto) 0 (0-450) /uL Baso # (Auto) 0 (0-100) /uL Sodium (137-145) mmol/L Potassium (3.4-5.1) mmol/L Chloride (98-107) mmol/L Carbon Dioxide (22-32) mmol/L BUN (9-20) mg/dL Creatinine (0.66-1.25) mg/dL Estimated GFR (>60) mL/min BUN/Creatinine Ratio (6-22) Glucose (70-100) mg/dL Calcium (8.4-10.2) mg/dL Total Bilirubin (0.2-1.3) mg/dL AST (17-59) IU/L ALT (<50) IU/L Alkaline Phosphatase (38-126) U/L Total Protein (6.3-8.2) g/dL Albumin (3.5-5.0) g/dL Globulin (1.7-4.1) g/dL Albumin/Globulin Ratio (1.0-2.8) Lipase (23-300) U/L Urine RBC 0-1/hpf (0-5/HPF) Urine WBC 0-1/hpf (0-5/HPF) Urine Bacteria None seen (None) Hyaline Casts 10-30/lpf (None) Ur Culture Indicated? Cult not indicated U Opiates 300ng/mL cut Negative (Negative) Ur Oxycodone Screen Negative (Negative) Urine Methadone Screen Negative (Negative) Ur Barbiturates Screen Negative (Negative) U Tricyclic Antidepress Positive H (Negative) Ur Phencyclidine Scrn Negative (Negative) Ur Amphetamines Screen Negative (Negative) U Methamphetamines Scrn Negative (Negative) Ur MDMA Scrn (Ecstasy) Negative (Negative) U Benzodiazepines Scrn Negative (Negative) Urine Cocaine Screen Positive H (Negative) U Marijuana (THC) Screen Positive H (Negative) 02/02/21 Range/Units 19:20 WBC (4.5-11.0) X10^3/uL RBC (4.5-5.9) X10^6/uL Hgb (13.5-17.5) g/dL Hct (41-53) % MCV (80-100) fL MCH (26-34) PG MCHC (30-36) % RDW (11.6-14.8) % Plt Count (150-400) X10^3/uL Neut % (Auto) (50-75) % Lymph % (Auto) (25-40) % Frederick % (Auto) (3-14) % Eos % (Auto) (2-4) % Baso % (Auto) (0-2) % Neut # (Auto) (8718-8876) /uL Lymph # (Auto) (9664-4448) /uL Frederick # (Auto) (0-900) /uL Eos # (Auto) (0-450) /uL Baso # (Auto) (0-100) /uL Sodium 137 (137-145) mmol/L Potassium 3.6 (3.4-5.1) mmol/L Chloride 98 (98-107) mmol/L Carbon Dioxide 19 L (22-32) mmol/L BUN 19 (9-20) mg/dL Creatinine 1.34 H (0.66-1.25) mg/dL Estimated GFR > 60.0 (>60) mL/min BUN/Creatinine Ratio 14.2 (6-22) Glucose 110 H (70-100) mg/dL Calcium 10.4 H (8.4-10.2) mg/dL Total Bilirubin 1.8 H (0.2-1.3) mg/dL AST 39 (17-59) IU/L ALT 26 (<50) IU/L Alkaline Phosphatase 99 (38-126) U/L Total Protein 9.5 H (6.3-8.2) g/dL Albumin 5.3 H (3.5-5.0) g/dL Globulin 4.2 H (1.7-4.1) g/dL Albumin/Globulin Ratio 1.3 (1.0-2.8) Lipase 137 (23-300) U/L Urine RBC (0-5/HPF) Urine WBC (0-5/HPF) Urine Bacteria (None) Hyaline Casts (None) Ur Culture Indicated? U Opiates 300ng/mL cut (Negative) Ur Oxycodone Screen (Negative) Urine Methadone Screen (Negative) Ur Barbiturates Screen (Negative) U Tricyclic Antidepress (Negative) Ur Phencyclidine Scrn (Negative) Ur Amphetamines Screen (Negative) U Methamphetamines Scrn (Negative) Ur MDMA Scrn (Ecstasy) (Negative) U Benzodiazepines Scrn (Negative) Urine Cocaine Screen (Negative) U Marijuana (THC) Screen (Negative) Urine Dip Bedside Urine Glucose Negative Bedside Urine Bilirubin - Negative Bedside Urine Ketone +++ 80 Urine Specific [place] 1.010 Bedside Urine Occult Blood - Negative Bedside Urine pH 8.5 Bedside Urine Protein + 30 Bedside Urine Urobilinogen - Negative Bedside Urine Nitrite - Negative Bedside Urine Leukocytes - Negative Esterase MDM Narrative Medical decision making narrative: Patient presents with persistent vomiting for the past 24 hours or so. He states that he is now only dry heaving. He denies any pain and has no fever or chills. He denies recent antibiotics or exposure to bad foods. He states that this feels typical to prior episodes of cyclic vomiting and is typical trigger is anxiety. He started a new job today. He had a very reassuring history and physical exam as well as appropriate response to above-stated therapies. His symptoms were controlled, he can tolerate oral hydration. Return precautions discussed and questions answered to his apparent satisfaction Discharge Plan Departure Patient Disposition: Home Clinical Impression: Cyclic vomiting syndrome Instructions: DI for Dehydration -- Adult, DI for Cyclic Vomiting Syndrome- Child Activity Restrictions/Additional Instructions: *You have been diagnosed with [cyclic vomiting syndrome] *What to do: *Please continue to take your regular medications as directed. [ ] New medication prescriptions sent to your pharmacy: [ ] [ ] New medication written as a paper prescription [x ] No new medications given *Please follow up with your primary care provider in 2-3 days, call for an appointment. Let them know you were seen in the Emergency Department and that we ask that you be seen in follow up. We will electronically transmit a record of today's note if your PCP is in our system *If you do not have a primary care provider please contact the [facility] Resource line at [phone]. They will ask some questions about your medical history and help get you set up with a doctor in the community. *Return to Emergency Department if you should have any new, worsening or concerning symptoms, such as [fever greater than 101 F, shaking chills, worsening pain, persistent vomiting or other bothersome symptoms] Prescriptions: No Action ondansetron 4 mg tablet,disintegrating 4 mg PO Q6H PRN (Reason: nausea and vomiting) Qty: 20 0RF metoclopramide HCl 10 mg tablet 10 mg PO Q6H PRN (Reason: nausea and vomiting) Qty: 14 0RF ondansetron 4 mg tablet,disintegrating 4 mg PO Q8H Qty: 14 0RF ondansetron HCl [Zofran] 4 mg tablet 4 mg PO Q6H PRN (Reason: nausea and vomiting) Qty: 15 0RF Rx Instructions: take 1-2 tabs with the onset of your vomiting and up to 4 times per day diphenhydramine HCl [Benadryl Allergy] 25 mg tablet 25 mg PO Q6H PRN (Reason: nausea and vomiting) Qty: 20 0RF Rx Instructions: take 1-2 capsules every 6 hours for vomiting if uncontrolled by Zofran prochlorperazine [Compazine] 25 mg suppository 25 mg LA Q12H PRN (Reason: nausea and vomiting) Qty: 12 0RF Rx Instructions: Take 1 suppository q12h for vomiting uncontrolled by benadryl and zofran Referrals: Shakira Ramos MD [Primary Care Provider] - Stand Alone Forms: Work Release Note
[2021-02-02] MEDS: LORazepam 2 MG/ML INJ 1 MG IV (19:19)
[2021-02-02] MEDS: ONDANSETRON 4 MG/2 ML INJ IV (19:19)
[2021-02-02] MEDS: SODIUM CHLORIDE 0.9% 1,000 ML 1000 ML IV (19:19)
[2021-02-02] MEDS: PANTOPRAZOLE 40 MG VIAL IV (19:19)
[2021-02-02 19:27] LABS: Add Manual Diff / Slide Review NO; Basophils Absolute Auto 0 /uL (0-100); Basophils Percent Auto 0.3 % (0-2); Eosinophils Absolute Auto 0 /uL (0-450); Hematocrit 45.4 % (41-53); Hemoglobin 15.5 g/dL (13.5-17.5); Lymphocytes Absolute Auto 1600 /uL (1100-4500); Mean Corpuscular Hemoglobin 26.3 PG (26-34); Mean Corpuscular Volume 77.2 fL (80-100); Monocytes Absolute Auto 800 /uL (0-900); Monocytes Percent Auto 4.8 % (3-14); Neutrophils Absolute Auto 15300 /uL (1500-7000); Neutrophils Percent Auto 85.9 % (50-75); Platelet Count 323 X10^3/uL (150-400); Red Blood Cell Count 5.88 X10^6/uL (4.5-5.9); Red Cell Distribution Width 13.9 % (11.6-14.8); White Blood Cell Count 17.8 X10^3/uL (4.5-11.0)
[2021-02-02 19:42] LABS: Albumin 5.3 g/dL (3.5-5.0); Albumin Globulin Ratio 1.3 (1.0-2.8); Alkaline Phosphatase 99 U/L (38-126); Aspartate Aminotransferase 39 IU/L (17-59); BUN Creatinine Ratio 14.2 (6-22); Bilirubin Total 1.8 mg/dL (0.2-1.3); Blood Urea Nitrogen 19 mg/dL (9-20); Calcium 10.4 mg/dL (8.4-10.2); Carbon Dioxide 19 mmol/L (22-32); Chloride 98 mmol/L (98-107); Estimated Glomerular Filt Rate > 60.0 mL/min (>60); Globulin 4.2 g/dL (1.7-4.1); Glucose 110 mg/dL (70-100); HEMOLYSIS 18 (0-50); Lipase 137 U/L (23-300); Potassium 3.6 mmol/L (3.4-5.1); Sodium 137 mmol/L (137-145); Total Protein 9.5 g/dL (6.3-8.2)
[2021-02-02 19:51] LABS: Alanine Aminotransferase 26 IU/L (<50)
[2021-02-02 20:48] VITALS: BP 157/91; PULSE 87; RESP 16; O2SAT 99
== END 2021-02-02 20:51 | disposition home or self-care (01) ==
PROVIDERS: Emergency Medicine; Emergency Provider Emergency Medicine; PCP Internal Medicine
DX: R11.15 Cyclical vomiting syndrome unrelated to migraine (principal)
CPT/HCPCS: 36415; 80053; 80305; 81003; 81015; 83690; 85025; 96361; 96374; 96375; 99284; C9113; J2060; J2405

== ENCOUNTER → 2024-03-26 15:14 | Outpatient (CLI) | payer OTHER, SELFPAY ==
--- NOTE | 2024-03-26 15:16 | DI.RAD.S_ITS ---
PROCEDURE: XR KNEE RT 3V INDICATIONS: Bilateral Knee Pain TECHNIQUE: 3 views of the knee were acquired. COMPARISON: None. FINDINGS: Bones: No fractures or dislocations. No suspicious bony lesions. Soft tissues: No joint effusion. No suspicious soft tissue calcifications. IMPRESSION: No acute bony abnormality or significant effusion. Dictated by: Ruben Lewis M.D. on 03/27/2024 at 7:21 Approved by: Ruben Lewis M.D. on 03/27/2024 at 7:22
--- NOTE | 2024-03-26 15:16 | DI.RAD.S_ITS ---
PROCEDURE: XR KNEE LT 3V INDICATIONS: Bilateral Knee Pain TECHNIQUE: 3 views of the knee were acquired. COMPARISON: None. FINDINGS: Bones: No fractures or dislocations. No suspicious bony lesions. Soft tissues: No joint effusion. No suspicious soft tissue calcifications. IMPRESSION: No acute bony abnormality or significant effusion. Dictated by: Ruben Lewis M.D. on 03/27/2024 at 7:22 Approved by: Ruben Lewis M.D. on 03/27/2024 at 7:23
[2024-03-26 16:35] LABS: Hematocrit 44.2 % (41-53); Mean Corpuscular HGB Conc 33.9 % (30-36); Mean Corpuscular Hemoglobin 26.3 PG (26-34); Mean Corpuscular Volume 77.6 fL (80-100); Platelet Count 341 X10^3/uL (150-400); Red Cell Distribution Width 15.8 % (11.6-14.8)
[2024-03-26 16:53] LABS: Alanine Aminotransferase 32 IU/L (<50); Albumin 4.7 g/dL (3.5-5.0); Albumin Globulin Ratio 1.6 (1.0-2.8); Alkaline Phosphatase 82 U/L (38-126); Aspartate Aminotransferase 33 IU/L (17-59); BUN Creatinine Ratio 9.8 (6-22); Bilirubin Total 1.5 mg/dL (0.2-1.3); Blood Urea Nitrogen 12 mg/dL (9-20); Calcium 9.9 mg/dL (8.4-10.2); Carbon Dioxide 26 mmol/L (22-32); Chloride 105 mmol/L (98-107); Estimated Glomerular Filt Rate > 60 mL/min (>60); Globulin 2.9 g/dL (1.7-4.1); Glucose 92 mg/dL (70-100); HEMOLYSIS < 15 (0-50); Potassium 4.5 mmol/L (3.4-5.1); Sodium 139 mmol/L (137-145); Total Protein 7.6 g/dL (6.3-8.2)
[2024-03-26 16:54] LABS: INR 1.1 (0.9-1.3); Prothrombin Time 12.9 SECONDS (9.4-12.5)
[2024-03-26 17:08] LABS: Urine N gonorrhoeae NOT DETECTED
[2024-03-26 17:14] LABS: Urine Chlamydia NOT DETECTED
[2024-03-26 17:42] LABS: HIV 1 & 2 Ab/Ag 4th Gen Combo NEGATIVE (NEGATIVE); Hep C Virus Ab w/Reflex Quant NEGATIVE s/c (NEGATIVE)
[2024-03-28 18:40] LABS: Activated Prot C Resistance 2.9 ratio (2.2-3.5); Protein C-Functional 101 % (73-180)
== END ==
LOC: LAB 15:15
PROVIDERS: PCP Family Medicine; Referring Provider Family Medicine; Visit Provider Family Medicine
DX: Z13.9 Encounter for screening, unspecified (principal); Z11.59 Encounter for screening for other viral diseases; Z11.4 Encounter for screening for human immunodeficiency virus [HIV]; Z11.3 Encounter for screening for infections with a predominantly sexual mode of transmission; Z86.718 Personal history of other venous thrombosis and embolism
CPT/HCPCS: 36415; 73562; 80053; 81240; 81241; 85027; 85303; 85520; 85610; 86803; 87389; 87491; 87591

== ENCOUNTER 2024-09-27 06:24 | Emergency (ER) | payer OTHER, SELFPAY ==
[2024-09-27] VITALS (31 sets, daily range): BP systolic 133–163; BP diastolic 79–105; PULSE 54–112; RESP 14–26; TEMP 36.7; O2SAT 78–100; BMI 21.6
--- NOTE | 2024-09-27 06:35 | ED_ITS ---
HPI - Psych <Khoi Talbot DO - Last Filed: 09/27/24 17:32> General Chief Complaint: Nausea/Vomiting/Diarrhea Stated Complaint: Nausea Time Seen by Provider: 09/27/24 06:27 History of Present Illness HPI Narrative: Patient is a 33-year-old male with a past medical history anxiety, PTSD, comes into the ED from home for evaluation of nausea and vomiting. Patient states that he has been to multiple ER over the past 2 days, states that he just came from [facility] ER states that he was there for the same symptoms, he states that currently ?demons Hexes poisons are causing him to have a buddhist episode states that he is only here to be monitored while he is trying to expel the demons. He states that he does not want any medications just wants to be monitored to make sure that as he is going through everything he is ?safe. He states that he has already received 3 L of saline just prior to arrival at the other emergency room. He denies any other symptoms at this time he is stating that he adamantly does not want any medications and just wants to be monitored. Related Data Allergies Allergy/AdvReac Type Severity Reaction Status Date / Time Methylphenidate Allergy Mild sick Uncoded 03/19/24 14:56 Review of Systems <Khoi aTlbot DO - Last Filed: 09/27/24 17:32> Review of Systems Narrative: General: Denies fever, chills, weight loss HEENT: Denies headache, eye drainage, eye irritation, head trauma, sore throat, voice change Cardiovascular: Denies any chest pain, palpitations, tachycardia Respiratory: Denies any shortness of breath, cough, wheeze, stridor GI/: Positive nausea and vomiting Denies any abdominal pain, diarrhea, bright red blood per rectum, melanotic stools, urinary frequency, urinary retention, dysuria, hematuria MSK: Denies any joint pain, muscle pains, swelling Skin: Denies any rashes, lesions, discoloration Neuro: Denies any headache, lightheadedness, dizziness, fainting, weakness Psych: Denies SI/HI Patient History <DO Brandon Ramirez Last Filed: 09/27/24 17:32> Medical History (Updated 09/29/24 @ 01:40 by Lucy Hartzog, RN) Hearing decreased Asthma Personality disorder (~2012) Headache (~2013) ADHD Knee pain Wrist pain Shoulder pain (~2016) Fractures Chronic back pain Ankle pain (~2012) Chicken pox Vertigo (~2011) Tinnitus (~2011) GERD (gastroesophageal reflux disease) (~2012) Pulmonary embolism (~2016) Hypertension History of recurrent deep vein thrombosis (DVT) Hearing loss (~2012) Bilateral knee pain PTSD (post-traumatic stress disorder) Hx of substance abuse Depression (~2012) Drug abuse Anxiety (~2012) Cyclic vomiting syndrome Surgical History (Updated 04/11/24 @ 20:10 by Kelley Prasad) Anesthesia History of shoulder surgery (~2016) History of ankle surgery Family History (Updated 04/11/24 @ 20:11 by Kelley Prasad) Father History of heart disease Mental health problem Social History Smoking Status: Former smoker Tobacco: How many years used: 13 alcohol intake: former substance use type: crack/cocaine (Intermittent [id number]), inhalants (Intermittent [id number]) and methamphetamine (Brief, stopped 03/2023) tobacco type: cigarettes alcohol intake frequency: holidays/special occasions only Exam <Khoi Talbot DO - Last Filed: 09/27/24 17:32> Narrative Exam Narrative: General: Cooperative, well-developed, not in acute distress HEENT: Normocephalic, atraumatic, PERRLA, normal sclera, eyelids normal Neck: Active full range of motion, atraumatic Chest: Normal to inspection, negative crepitus, no overlying erythema ecchymosis Respiratory: Normal respiratory effort, not in acute respiratory distress, clear to auscultation bilaterally negative cough, wheeze, tachypnea, rhonchi, rales Cardiology: Regular rate rhythm negative gallop, murmur, rubs GI/: Patient has dry heaving on exam No tenderness to palpation, soft, non rigid, normal to inspection, exam deferred MSK: Full active range of motion in all 4 extremities, atraumatic, no tenderness to palpation of any bony prominences Skin: No rashes or lesions noted Neuro: Alert awake oriented x3, moves all 4 extremities spontaneously, cranial nerves intact, able to answer all questions appropriately follows commands appropriately Psych: Cooperative, negative suicidal or homicidal ideations Initial Vital Signs Initial Vital Signs: Vital Signs Pulse Rate 86 09/27/24 06:36 Respiratory Rate 26 H 09/27/24 06:36 Pulse Oximetry 99 09/27/24 06:36 <Saroj Mai MD - Last Filed: 09/27/24 19:11> Initial Vital Signs Initial Vital Signs: Vital Signs Pulse Rate 86 09/27/24 06:36 Respiratory Rate 26 H 09/27/24 06:36 Pulse Oximetry 99 09/27/24 06:36 <Anup Houser DO - Last Filed: 10/02/24 23:06> Initial Vital Signs Initial Vital Signs: Vital Signs Pulse Rate 86 09/27/24 06:36 Respiratory Rate 26 H 09/27/24 06:36 Pulse Oximetry 99 09/27/24 06:36 Course <Khoi Talbot DO - Last Filed: 09/27/24 17:32> Orders Ordered: Discontinued Medications Diphenhydramine HCl (Diphenhydramine 50 Mg/Ml Vial) 50 mg IV NOW ONE Stop: 09/27/24 20:04 Last Admin: 09/27/24 20:08 Dose: 50 mg Documented By: ALEX Diphenhydramine HCl (Diphenhydramine 50 Mg/Ml Vial) 50 mg IV NOW ONE Stop: 09/28/24 16:32 Last Admin: 09/28/24 16:34 Dose: 50 mg Documented By: REJI Droperidol (Droperidol 2.5 Mg/Ml Vial) 2.5 mg IV NOW ONE Stop: 09/27/24 20:04 Last Admin: 09/27/24 20:09 Dose: 2.5 mg Documented By: ALEX Droperidol (Droperidol 2.5 Mg/Ml Vial) 2.5 mg IV NOW ONE Stop: 09/28/24 21:15 Last Admin: 09/28/24 21:28 Dose: 2.5 mg Documented By: SB Ondansetron HCl 8 mg/ Sodium (Chloride) 54 mls @ 216 mls/hr IV NOW ONE Stop: 09/27/24 10:32 Last Infusion: 09/27/24 14:40 Dose: Infused Documented By: Admin: 09/27/24 14:09 Dose: 216 mls/hr Documented By: REJI Sodium Chloride (Normal Saline 0.9%) 1,000 mls @ 100 mls/hr IV CONT TIANNA Last Infusion: 09/28/24 00:06 Dose: Infused Documented By: Admin: 09/27/24 13:36 Dose: 100 mls/hr Documented By: ES POTASSIUM CHLORIDE IN WATER (Potassium Cl 10 Meq/100 Ml Frannie) 10 meq in 100 mls @ 100 mls/hr IV Q1H TIANNA Stop: 09/27/24 15:29 Last Infusion: 09/27/24 16:15 Dose: Infused Documented By: Admin: 09/27/24 14:54 Dose: 100 mls/hr Documented By: Infusion: 09/27/24 14:36 Dose: Infused Documented By: Admin: 09/27/24 13:36 Dose: 100 mls/hr Documented By: ES Ketorolac Tromethamine (Ketorolac 30 Mg/Ml Vial) 30 mg IV NOW ONE Stop: 09/27/24 15:38 Last Admin: 09/27/24 15:40 Dose: 30 mg Documented By: ES Ketorolac Tromethamine (Ketorolac 30 Mg/Ml Vial) 30 mg IV NOW ONE Stop: 09/28/24 16:29 Last Admin: 09/28/24 16:36 Dose: 30 mg Documented By: ES Metoclopramide HCl (Metoclopramide 10 Mg/2 Ml Inj) 5 mg IV NOW ONE Stop: 09/27/24 15:38 Last Admin: 09/27/24 15:41 Dose: 5 mg Documented By: ES Metoclopramide HCl (Metoclopramide 10 Mg/2 Ml Inj) 5 mg IV NOW ONE Stop: 09/27/24 18:49 Last Admin: 09/27/24 18:50 Dose: 5 mg Documented By: ES Ondansetron HCl (Ondansetron 4 Mg/2 Ml Inj) 4 mg IV Q6HR PRN PRN Reason: Nausea And Vomiting Last Admin: 09/28/24 15:11 Dose: 4 mg Documented By: REJI Vital Signs Vital signs: Vital Signs - 8 hr 09/27/24 11:30 09/27/24 12:00 09/27/24 12:00 Pulse Rate 73 65 Respiratory Rate 18 19 Blood Pressure 133/98 H Pulse Oximetry 98 97 09/27/24 12:30 09/27/24 13:00 09/27/24 13:00 Pulse Rate 62 73 Respiratory Rate 14 15 Blood Pressure 143/105 H Pulse Oximetry 09/27/24 13:41 09/27/24 14:00 09/27/24 14:30 Pulse Rate 72 78 71 Respiratory Rate 18 20 Blood Pressure Pulse Oximetry 09/27/24 15:00 09/27/24 15:30 09/27/24 16:00 Pulse Rate 70 62 112 H Respiratory Rate Blood Pressure Pulse Oximetry 09/27/24 16:20 09/27/24 16:20 09/27/24 16:30 Pulse Rate 69 54 L Respiratory Rate 17 Blood Pressure 149/90 H Pulse Oximetry 100 09/27/24 17:00 09/27/24 17:30 Pulse Rate 78 59 L Respiratory Rate Blood Pressure Pulse Oximetry <Saroj Mai MD - Last Filed: 09/27/24 19:11> Orders Ordered: Discontinued Medications Diphenhydramine HCl (Diphenhydramine 50 Mg/Ml Vial) 50 mg IV NOW ONE Stop: 09/27/24 20:04 Last Admin: 09/27/24 20:08 Dose: 50 mg Documented By: ALEX Diphenhydramine HCl (Diphenhydramine 50 Mg/Ml Vial) 50 mg IV NOW ONE Stop: 09/28/24 16:32 Last Admin: 09/28/24 16:34 Dose: 50 mg Documented By: REJI Droperidol (Droperidol 2.5 Mg/Ml Vial) 2.5 mg IV NOW ONE Stop: 09/27/24 20:04 Last Admin: 09/27/24 20:09 Dose: 2.5 mg Documented By: ALEX Droperidol (Droperidol 2.5 Mg/Ml Vial) 2.5 mg IV NOW ONE Stop: 09/28/24 21:15 Last Admin: 09/28/24 21:28 Dose: 2.5 mg Documented By: SB Ondansetron HCl 8 mg/ Sodium (Chloride) 54 mls @ 216 mls/hr IV NOW ONE Stop: 09/27/24 10:32 Last Infusion: 09/27/24 14:40 Dose: Infused Documented By: Admin: 09/27/24 14:09 Dose: 216 mls/hr Documented By: ES Sodium Chloride (Normal Saline 0.9%) 1,000 mls @ 100 mls/hr IV CONT TIANNA Last Infusion: 09/28/24 00:06 Dose: Infused Documented By: Admin: 09/27/24 13:36 Dose: 100 mls/hr Documented By: ES POTASSIUM CHLORIDE IN WATER (Potassium Cl 10 Meq/100 Ml Frannie) 10 meq in 100 mls @ 100 mls/hr IV Q1H TIANNA Stop: 09/27/24 15:29 Last Infusion: 09/27/24 16:15 Dose: Infused Documented By: Admin: 09/27/24 14:54 Dose: 100 mls/hr Documented By: Infusion: 09/27/24 14:36 Dose: Infused Documented By: Admin: 09/27/24 13:36 Dose: 100 mls/hr Documented By: ES Ketorolac Tromethamine (Ketorolac 30 Mg/Ml Vial) 30 mg IV NOW ONE Stop: 09/27/24 15:38 Last Admin: 09/27/24 15:40 Dose: 30 mg Documented By: ES Ketorolac Tromethamine (Ketorolac 30 Mg/Ml Vial) 30 mg IV NOW ONE Stop: 09/28/24 16:29 Last Admin: 09/28/24 16:36 Dose: 30 mg Documented By: ES Metoclopramide HCl (Metoclopramide 10 Mg/2 Ml Inj) 5 mg IV NOW ONE Stop: 09/27/24 15:38 Last Admin: 09/27/24 15:41 Dose: 5 mg Documented By: ES Metoclopramide HCl (Metoclopramide 10 Mg/2 Ml Inj) 5 mg IV NOW ONE Stop: 09/27/24 18:49 Last Admin: 09/27/24 18:50 Dose: 5 mg Documented By: ES Ondansetron HCl (Ondansetron 4 Mg/2 Ml Inj) 4 mg IV Q6HR PRN PRN Reason: Nausea And Vomiting Last Admin: 09/28/24 15:11 Dose: 4 mg Documented By: REJI Vital Signs Vital signs: Vital Signs - 8 hr 09/27/24 11:30 09/27/24 12:00 09/27/24 12:00 Pulse Rate 73 65 Respiratory Rate 18 19 Blood Pressure 133/98 H Pulse Oximetry 98 97 09/27/24 12:30 09/27/24 13:00 09/27/24 13:00 Pulse Rate 62 73 Respiratory Rate 14 15 Blood Pressure 143/105 H Pulse Oximetry 09/27/24 13:41 09/27/24 14:00 09/27/24 14:30 Pulse Rate 72 78 71 Respiratory Rate 18 20 Blood Pressure Pulse Oximetry 09/27/24 15:00 09/27/24 15:30 09/27/24 16:00 Pulse Rate 70 62 112 H Respiratory Rate Blood Pressure Pulse Oximetry 09/27/24 16:20 09/27/24 16:20 09/27/24 16:30 Pulse Rate 69 54 L Respiratory Rate 17 Blood Pressure 149/90 H Pulse Oximetry 100 09/27/24 17:00 09/27/24 17:30 Pulse Rate 78 59 L Respiratory Rate Blood Pressure Pulse Oximetry <Anup Houser, DO - Last Filed: 10/02/24 23:06> Orders Ordered: Discontinued Medications Diphenhydramine HCl (Diphenhydramine 50 Mg/Ml Vial) 50 mg IV NOW ONE Stop: 09/27/24 20:04 Last Admin: 09/27/24 20:08 Dose: 50 mg Documented By: ALEX Diphenhydramine HCl (Diphenhydramine 50 Mg/Ml Vial) 50 mg IV NOW ONE Stop: 09/28/24 16:32 Last Admin: 09/28/24 16:34 Dose: 50 mg Documented By: REJI Droperidol (Droperidol 2.5 Mg/Ml Vial) 2.5 mg IV NOW ONE Stop: 09/27/24 20:04 Last Admin: 09/27/24 20:09 Dose: 2.5 mg Documented By: ALEX Droperidol (Droperidol 2.5 Mg/Ml Vial) 2.5 mg IV NOW ONE Stop: 09/28/24 21:15 Last Admin: 09/28/24 21:28 Dose: 2.5 mg Documented By: SB Ondansetron HCl 8 mg/ Sodium (Chloride) 54 mls @ 216 mls/hr IV NOW ONE Stop: 09/27/24 10:32 Last Infusion: 09/27/24 14:40 Dose: Infused Documented By: Admin: 09/27/24 14:09 Dose: 216 mls/hr Documented By: ES Sodium Chloride (Normal Saline 0.9%) 1,000 mls @ 100 mls/hr IV CONT TIANNA Last Infusion: 09/28/24 00:06 Dose: Infused Documented By: Admin: 09/27/24 13:36 Dose: 100 mls/hr Documented By: ES POTASSIUM CHLORIDE IN WATER (Potassium Cl 10 Meq/100 Ml Frannie) 10 meq in 100 mls @ 100 mls/hr IV Q1H TIANNA Stop: 09/27/24 15:29 Last Infusion: 09/27/24 16:15 Dose: Infused Documented By: Admin: 09/27/24 14:54 Dose: 100 mls/hr Documented By: Infusion: 09/27/24 14:36 Dose: Infused Documented By: Admin: 09/27/24 13:36 Dose: 100 mls/hr Documented By: REJI Ketorolac Tromethamine (Ketorolac 30 Mg/Ml Vial) 30 mg IV NOW ONE Stop: 09/27/24 15:38 Last Admin: 09/27/24 15:40 Dose: 30 mg Documented By: REJI Ketorolac Tromethamine (Ketorolac 30 Mg/Ml Vial) 30 mg IV NOW ONE Stop: 09/28/24 16:29 Last Admin: 09/28/24 16:36 Dose: 30 mg Documented By: REJI Metoclopramide HCl (Metoclopramide 10 Mg/2 Ml Inj) 5 mg IV NOW ONE Stop: 09/27/24 15:38 Last Admin: 09/27/24 15:41 Dose: 5 mg Documented By: REJI Metoclopramide HCl (Metoclopramide 10 Mg/2 Ml Inj) 5 mg IV NOW ONE Stop: 09/27/24 18:49 Last Admin: 09/27/24 18:50 Dose: 5 mg Documented By: REJI Ondansetron HCl (Ondansetron 4 Mg/2 Ml Inj) 4 mg IV Q6HR PRN PRN Reason: Nausea And Vomiting Last Admin: 09/28/24 15:11 Dose: 4 mg Documented By: REJI Vital Signs Vital signs: Vital Signs - 8 hr 09/27/24 11:30 09/27/24 12:00 09/27/24 12:00 Pulse Rate 73 65 Respiratory Rate 18 19 Blood Pressure 133/98 H Pulse Oximetry 98 97 09/27/24 12:30 09/27/24 13:00 09/27/24 13:00 Pulse Rate 62 73 Respiratory Rate 14 15 Blood Pressure 143/105 H Pulse Oximetry 09/27/24 13:41 09/27/24 14:00 09/27/24 14:30 Pulse Rate 72 78 71 Respiratory Rate 18 20 Blood Pressure Pulse Oximetry 09/27/24 15:00 09/27/24 15:30 09/27/24 16:00 Pulse Rate 70 62 112 H Respiratory Rate Blood Pressure Pulse Oximetry 09/27/24 16:20 09/27/24 16:20 09/27/24 16:30 Pulse Rate 69 54 L Respiratory Rate 17 Blood Pressure 149/90 H Pulse Oximetry 100 09/27/24 17:00 09/27/24 17:30 Pulse Rate 78 59 L Respiratory Rate Blood Pressure Pulse Oximetry MDM - Psych <Khoi Leavittsol, DO - Last Filed: 09/27/24 17:32> Differential Diagnosis Differential diagnosis: Likely acute psychosis, chronic schizophrenia, depression, drug-induced psychotic disorder and acute anxiety Lab Data 09/27/24 06:50 09/27/24 06:50 Labs: Lab Results 09/27/24 09/27/24 09/27/24 Range/Units 06:50 08:10 08:10 WBC 13.3 H (4.5-11.0) X10^3/uL RBC 5.25 (4.5-5.9) X10^6/uL Hgb 14.2 (13.5-17.5) g/dL Hct 40.4 L (41-53) % MCV 76.9 L (80-100) fL MCH 27.1 (26-34) PG MCHC 35.2 (30-36) % RDW 14.3 (11.6-14.8) % Plt Count 203 (150-400) X10^3/uL Neut % (Auto) 78.5 H (50-75) % Lymph % (Auto) 11.7 L (25-40) % [place] % (Auto) 9.6 (3-14) % Eos % (Auto) 0.1 L (2-4) % Baso % (Auto) 0.1 (0-2) % Neut # (Auto) 42222 H (1809-8272) /uL Lymph # (Auto) 1600 (2337-9391) /uL [place] # (Auto) 1300 H (0-900) /uL Eos # (Auto) 0 (0-450) /uL Baso # (Auto) 0 (0-100) /uL Sodium 138 (137-145) mmol/L Potassium 3.2 L (3.4-5.1) mmol/L Chloride 103 (98-107) mmol/L Carbon Dioxide 17 L (22-32) mmol/L BUN 12 (9-20) mg/dL Creatinine 0.85 (0.66-1.25) mg/dL Estimated GFR > 60 (>60) mL/min BUN/Creatinine Ratio 14.1 (6-22) Glucose 105 H (70-99) mg/dL Calcium 9.2 (8.4-10.2) mg/dL Magnesium 1.6 (1.6-2.3) mg/dL Total Bilirubin 2.9 H (0.2-1.3) mg/dL AST 47 (17-59) IU/L ALT 45 (<50) IU/L Alkaline Phosphatase 62 (38-126) U/L Total Protein 7.4 (6.3-8.2) g/dL Albumin 4.6 (3.5-5.0) g/dL Globulin 2.8 (1.7-4.1) g/dL Albumin/Globulin Ratio 1.6 (1.0-2.8) Lipase 264 (23-300) U/L TSH 0.617 (0.47-4.68) uIU/mL Urine Color Yellow Urine Appearance Clear Urine pH 5.5 Normal (4.5-8.0) Ur Specific [place] 1.015 (1.000-1.035) Urine Protein Negative (Negative) Urine Glucose (UA) Negative (Negative) g/dL Urine Ketones 3+ H (NEGATIVE) Urine Occult Blood Negative (Negative) Urine Nitrate Negative (Negative) Urine Bilirubin Negative (NEGATIVE) Urine Urobilinogen 0.2 (0.2) E.U./dL Ur Leukocyte Esterase Negative (NEGATIVE) Urine RBC None seen (0-5/HPF) Urine WBC None seen (0-5/HPF) Ur Squamous Epith Cells None seen (0-5/HPF) Urine Bacteria None seen (None) Ur Culture Indicated? Cult not indicated Vol Urine Centrifuged 10ml (spun) Salicylates < 1.0 (<20) mg/dL U Opiates 300ng/mL cut Negative (Negative) Ur Oxycodone Screen Negative (Negative) Urine Methadone Screen Negative (Negative) Acetaminophen < 10 (10-30) ug/mL Ur Barbiturates Screen Negative (Negative) U Tricyclic Antidepress Negative (Negative) Ur Phencyclidine Scrn Negative (Negative) Ur Amphetamines Screen Negative (Negative) U Methamphetamines Scrn Negative (Negative) Ur MDMA Scrn (Ecstasy) Negative (Negative) U Benzodiazepines Scrn Negative (Negative) Urine Cocaine Screen Negative (Negative) U Marijuana (THC) Screen Negative (Negative) Urine Specific [place] Normal (Normal) Ethyl Alcohol < 10 (<10) mg/dL Ur Creatinine Normal (Normal) SARS-CoV-2 (PCR) (Negative) 09/27/24 Range/Units 12:56 WBC (4.5-11.0) X10^3/uL RBC (4.5-5.9) X10^6/uL Hgb (13.5-17.5) g/dL Hct (41-53) % MCV (80-100) fL MCH (26-34) PG MCHC (30-36) % RDW (11.6-14.8) % Plt Count (150-400) X10^3/uL Neut % (Auto) (50-75) % Lymph % (Auto) (25-40) % [place] % (Auto) (3-14) % Eos % (Auto) (2-4) % Baso % (Auto) (0-2) % Neut # (Auto) (6592-1377) /uL Lymph # (Auto) (8291-1795) /uL [place] # (Auto) (0-900) /uL Eos # (Auto) (0-450) /uL Baso # (Auto) (0-100) /uL Sodium (137-145) mmol/L Potassium (3.4-5.1) mmol/L Chloride (98-107) mmol/L Carbon Dioxide (22-32) mmol/L BUN (9-20) mg/dL Creatinine (0.66-1.25) mg/dL Estimated GFR (>60) mL/min BUN/Creatinine Ratio (6-22) Glucose (70-99) mg/dL Calcium (8.4-10.2) mg/dL Magnesium (1.6-2.3) mg/dL Total Bilirubin (0.2-1.3) mg/dL AST (17-59) IU/L ALT (<50) IU/L Alkaline Phosphatase (38-126) U/L Total Protein (6.3-8.2) g/dL Albumin (3.5-5.0) g/dL Globulin (1.7-4.1) g/dL Albumin/Globulin Ratio (1.0-2.8) Lipase (23-300) U/L TSH (0.47-4.68) uIU/mL Urine Color Urine Appearance Urine pH (4.5-8.0) Ur Specific [place] (1.000-1.035) Urine Protein (Negative) Urine Glucose (UA) (Negative) g/dL Urine Ketones (NEGATIVE) Urine Occult Blood (Negative) Urine Nitrate (Negative) Urine Bilirubin (NEGATIVE) Urine Urobilinogen (0.2) E.U./dL Ur Leukocyte Esterase (NEGATIVE) Urine RBC (0-5/HPF) Urine WBC (0-5/HPF) Ur Squamous Epith Cells (0-5/HPF) Urine Bacteria (None) Ur Culture Indicated? Vol Urine Centrifuged Salicylates (<20) mg/dL U Opiates 300ng/mL cut (Negative) Ur Oxycodone Screen (Negative) Urine Methadone Screen (Negative) Acetaminophen (10-30) ug/mL Ur Barbiturates Screen (Negative) U Tricyclic Antidepress (Negative) Ur Phencyclidine Scrn (Negative) Ur Amphetamines Screen (Negative) U Methamphetamines Scrn (Negative) Ur MDMA Scrn (Ecstasy) (Negative) U Benzodiazepines Scrn (Negative) Urine Cocaine Screen (Negative) U Marijuana (THC) Screen (Negative) Urine Specific [place] (Normal) Ethyl Alcohol (<10) mg/dL Ur Creatinine (Normal) SARS-CoV-2 (PCR) Negative (Negative) MDM Narrative Medical decision making narrative: Patient is a 33-year-old male who is presenting from home for evaluation of nausea and vomiting, states that it is due to the fact that he is undergoing a ?buddhist episode he states that he needs to ?expel all the bad things and wants to just be monitored during this episode. He states that he believes it is due to witches, hexes, and poisons he states that he has been ongoing persistent since June. He states that he was just at another ER had received 3 L of normal saline and is only here to be monitored. He states that he is willing to have lab work and urine. He is adamant that he does not want any medications and just wants to be ?watched while this episode is occurring. Patient did have lab work urinalysis performed here. Patient was signed out to thad Davila pending full workup and evaluation by social work, most likely patient having psychosis and will require in patient psych. <Saroj Mai MD - Last Filed: 09/27/24 19:11> Lab Data Labs: Lab Results 09/27/24 09/27/24 09/27/24 Range/Units 06:50 08:10 08:10 WBC 13.3 H (4.5-11.0) X10^3/uL RBC 5.25 (4.5-5.9) X10^6/uL Hgb 14.2 (13.5-17.5) g/dL Hct 40.4 L (41-53) % MCV 76.9 L (80-100) fL MCH 27.1 (26-34) PG MCHC 35.2 (30-36) % RDW 14.3 (11.6-14.8) % Plt Count 203 (150-400) X10^3/uL Neut % (Auto) 78.5 H (50-75) % Lymph % (Auto) 11.7 L (25-40) % [place] % (Auto) 9.6 (3-14) % Eos % (Auto) 0.1 L (2-4) % Baso % (Auto) 0.1 (0-2) % Neut # (Auto) 39433 H (1442-7847) /uL Lymph # (Auto) 1600 (4684-2239) /uL [place] # (Auto) 1300 H (0-900) /uL Eos # (Auto) 0 (0-450) /uL Baso # (Auto) 0 (0-100) /uL Sodium 138 (137-145) mmol/L Potassium 3.2 L (3.4-5.1) mmol/L Chloride 103 (98-107) mmol/L Carbon Dioxide 17 L (22-32) mmol/L BUN 12 (9-20) mg/dL Creatinine 0.85 (0.66-1.25) mg/dL Estimated GFR > 60 (>60) mL/min BUN/Creatinine Ratio 14.1 (6-22) Glucose 105 H (70-99) mg/dL Calcium 9.2 (8.4-10.2) mg/dL Magnesium 1.6 (1.6-2.3) mg/dL Total Bilirubin 2.9 H (0.2-1.3) mg/dL AST 47 (17-59) IU/L ALT 45 (<50) IU/L Alkaline Phosphatase 62 (38-126) U/L Total Protein 7.4 (6.3-8.2) g/dL Albumin 4.6 (3.5-5.0) g/dL Globulin 2.8 (1.7-4.1) g/dL Albumin/Globulin Ratio 1.6 (1.0-2.8) Lipase 264 (23-300) U/L TSH 0.617 (0.47-4.68) uIU/mL Urine Color Yellow Urine Appearance Clear Urine pH 5.5 Normal (4.5-8.0) Ur Specific [place] 1.015 (1.000-1.035) Urine Protein Negative (Negative) Urine Glucose (UA) Negative (Negative) g/dL Urine Ketones 3+ H (NEGATIVE) Urine Occult Blood Negative (Negative) Urine Nitrate Negative (Negative) Urine Bilirubin Negative (NEGATIVE) Urine Urobilinogen 0.2 (0.2) E.U./dL Ur Leukocyte Esterase Negative (NEGATIVE) Urine RBC None seen (0-5/HPF) Urine WBC None seen (0-5/HPF) Ur Squamous Epith Cells None seen (0-5/HPF) Urine Bacteria None seen (None) Ur Culture Indicated? Cult not indicated Vol Urine Centrifuged 10ml (spun) Salicylates < 1.0 (<20) mg/dL U Opiates 300ng/mL cut Negative (Negative) Ur Oxycodone Screen Negative (Negative) Urine Methadone Screen Negative (Negative) Acetaminophen < 10 (10-30) ug/mL Ur Barbiturates Screen Negative (Negative) U Tricyclic Antidepress Negative (Negative) Ur Phencyclidine Scrn Negative (Negative) Ur Amphetamines Screen Negative (Negative) U Methamphetamines Scrn Negative (Negative) Ur MDMA Scrn (Ecstasy) Negative (Negative) U Benzodiazepines Scrn Negative (Negative) Urine Cocaine Screen Negative (Negative) U Marijuana (THC) Screen Negative (Negative) Urine Specific [place] Normal (Normal) Ethyl Alcohol < 10 (<10) mg/dL Ur Creatinine Normal (Normal) SARS-CoV-2 (PCR) (Negative) 09/27/24 Range/Units 12:56 WBC (4.5-11.0) X10^3/uL RBC (4.5-5.9) X10^6/uL Hgb (13.5-17.5) g/dL Hct (41-53) % MCV (80-100) fL MCH (26-34) PG MCHC (30-36) % RDW (11.6-14.8) % Plt Count (150-400) X10^3/uL Neut % (Auto) (50-75) % Lymph % (Auto) (25-40) % [place] % (Auto) (3-14) % Eos % (Auto) (2-4) % Baso % (Auto) (0-2) % Neut # (Auto) (9570-5468) /uL Lymph # (Auto) (1088-4502) /uL [place] # (Auto) (0-900) /uL Eos # (Auto) (0-450) /uL Baso # (Auto) (0-100) /uL Sodium (137-145) mmol/L Potassium (3.4-5.1) mmol/L Chloride (98-107) mmol/L Carbon Dioxide (22-32) mmol/L BUN (9-20) mg/dL Creatinine (0.66-1.25) mg/dL Estimated GFR (>60) mL/min BUN/Creatinine Ratio (6-22) Glucose (70-99) mg/dL Calcium (8.4-10.2) mg/dL Magnesium (1.6-2.3) mg/dL Total Bilirubin (0.2-1.3) mg/dL AST (17-59) IU/L ALT (<50) IU/L Alkaline Phosphatase (38-126) U/L Total Protein (6.3-8.2) g/dL Albumin (3.5-5.0) g/dL Globulin (1.7-4.1) g/dL Albumin/Globulin Ratio (1.0-2.8) Lipase (23-300) U/L TSH (0.47-4.68) uIU/mL Urine Color Urine Appearance Urine pH (4.5-8.0) Ur Specific [place] (1.000-1.035) Urine Protein (Negative) Urine Glucose (UA) (Negative) g/dL Urine Ketones (NEGATIVE) Urine Occult Blood (Negative) Urine Nitrate (Negative) Urine Bilirubin (NEGATIVE) Urine Urobilinogen (0.2) E.U./dL Ur Leukocyte Esterase (NEGATIVE) Urine RBC (0-5/HPF) Urine WBC (0-5/HPF) Ur Squamous Epith Cells (0-5/HPF) Urine Bacteria (None) Ur Culture Indicated? Vol Urine Centrifuged Salicylates (<20) mg/dL U Opiates 300ng/mL cut (Negative) Ur Oxycodone Screen (Negative) Urine Methadone Screen (Negative) Acetaminophen (10-30) ug/mL Ur Barbiturates Screen (Negative) U Tricyclic Antidepress (Negative) Ur Phencyclidine Scrn (Negative) Ur Amphetamines Screen (Negative) U Methamphetamines Scrn (Negative) Ur MDMA Scrn (Ecstasy) (Negative) U Benzodiazepines Scrn (Negative) Urine Cocaine Screen (Negative) U Marijuana (THC) Screen (Negative) Urine Specific [place] (Normal) Ethyl Alcohol (<10) mg/dL Ur Creatinine (Normal) SARS-CoV-2 (PCR) Negative (Negative) <Anup Houser, DO - Last Filed: 10/02/24 23:06> Lab Data Labs: Lab Results 09/27/24 09/27/24 09/27/24 Range/Units 06:50 08:10 08:10 WBC 13.3 H (4.5-11.0) X10^3/uL RBC 5.25 (4.5-5.9) X10^6/uL Hgb 14.2 (13.5-17.5) g/dL Hct 40.4 L (41-53) % MCV 76.9 L (80-100) fL MCH 27.1 (26-34) PG MCHC 35.2 (30-36) % RDW 14.3 (11.6-14.8) % Plt Count 203 (150-400) X10^3/uL Neut % (Auto) 78.5 H (50-75) % Lymph % (Auto) 11.7 L (25-40) % [place] % (Auto) 9.6 (3-14) % Eos % (Auto) 0.1 L (2-4) % Baso % (Auto) 0.1 (0-2) % Neut # (Auto) 90270 H (4168-0128) /uL Lymph # (Auto) 1600 (4455-1283) /uL [place] # (Auto) 1300 H (0-900) /uL Eos # (Auto) 0 (0-450) /uL Baso # (Auto) 0 (0-100) /uL Sodium 138 (137-145) mmol/L Potassium 3.2 L (3.4-5.1) mmol/L Chloride 103 (98-107) mmol/L Carbon Dioxide 17 L (22-32) mmol/L BUN 12 (9-20) mg/dL Creatinine 0.85 (0.66-1.25) mg/dL Estimated GFR > 60 (>60) mL/min BUN/Creatinine Ratio 14.1 (6-22) Glucose 105 H (70-99) mg/dL Calcium 9.2 (8.4-10.2) mg/dL Magnesium 1.6 (1.6-2.3) mg/dL Total Bilirubin 2.9 H (0.2-1.3) mg/dL AST 47 (17-59) IU/L ALT 45 (<50) IU/L Alkaline Phosphatase 62 (38-126) U/L Total Protein 7.4 (6.3-8.2) g/dL Albumin 4.6 (3.5-5.0) g/dL Globulin 2.8 (1.7-4.1) g/dL Albumin/Globulin Ratio 1.6 (1.0-2.8) Lipase 264 (23-300) U/L TSH 0.617 (0.47-4.68) uIU/mL Urine Color Yellow Urine Appearance Clear Urine pH 5.5 Normal (4.5-8.0) Ur Specific [place] 1.015 (1.000-1.035) Urine Protein Negative (Negative) Urine Glucose (UA) Negative (Negative) g/dL Urine Ketones 3+ H (NEGATIVE) Urine Occult Blood Negative (Negative) Urine Nitrate Negative (Negative) Urine Bilirubin Negative (NEGATIVE) Urine Urobilinogen 0.2 (0.2) E.U./dL Ur Leukocyte Esterase Negative (NEGATIVE) Urine RBC None seen (0-5/HPF) Urine WBC None seen (0-5/HPF) Ur Squamous Epith Cells None seen (0-5/HPF) Urine Bacteria None seen (None) Ur Culture Indicated? Cult not indicated Vol Urine Centrifuged 10ml (spun) Salicylates < 1.0 (<20) mg/dL U Opiates 300ng/mL cut Negative (Negative) Ur Oxycodone Screen Negative (Negative) Urine Methadone Screen Negative (Negative) Acetaminophen < 10 (10-30) ug/mL Ur Barbiturates Screen Negative (Negative) U Tricyclic Antidepress Negative (Negative) Ur Phencyclidine Scrn Negative (Negative) Ur Amphetamines Screen Negative (Negative) U Methamphetamines Scrn Negative (Negative) Ur MDMA Scrn (Ecstasy) Negative (Negative) U Benzodiazepines Scrn Negative (Negative) Urine Cocaine Screen Negative (Negative) U Marijuana (THC) Screen Negative (Negative) Urine Specific [place] Normal (Normal) Ethyl Alcohol < 10 (<10) mg/dL Ur Creatinine Normal (Normal) SARS-CoV-2 (PCR) (Negative) 09/27/24 Range/Units 12:56 WBC (4.5-11.0) X10^3/uL RBC (4.5-5.9) X10^6/uL Hgb (13.5-17.5) g/dL Hct (41-53) % MCV (80-100) fL MCH (26-34) PG MCHC (30-36) % RDW (11.6-14.8) % Plt Count (150-400) X10^3/uL Neut % (Auto) (50-75) % Lymph % (Auto) (25-40) % [place] % (Auto) (3-14) % Eos % (Auto) (2-4) % Baso % (Auto) (0-2) % Neut # (Auto) (9338-7962) /uL Lymph # (Auto) (2262-7169) /uL [place]ann[place] # (Auto) (0-900) /uL Eos # (Auto) (0-450) /uL Baso # (Auto) (0-100) /uL Sodium (137-145) mmol/L Potassium (3.4-5.1) mmol/L Chloride (98-107) mmol/L Carbon Dioxide (22-32) mmol/L BUN (9-20) mg/dL Creatinine (0.66-1.25) mg/dL Estimated GFR (>60) mL/min BUN/Creatinine Ratio (6-22) Glucose (70-99) mg/dL Calcium (8.4-10.2) mg/dL Magnesium (1.6-2.3) mg/dL Total Bilirubin (0.2-1.3) mg/dL AST (17-59) IU/L ALT (<50) IU/L Alkaline Phosphatase (38-126) U/L Total Protein (6.3-8.2) g/dL Albumin (3.5-5.0) g/dL Globulin (1.7-4.1) g/dL Albumin/Globulin Ratio (1.0-2.8) Lipase (23-300) U/L TSH (0.47-4.68) uIU/mL Urine Color Urine Appearance Urine pH (4.5-8.0) Ur Specific [place] (1.000-1.035) Urine Protein (Negative) Urine Glucose (UA) (Negative) g/dL Urine Ketones (NEGATIVE) Urine Occult Blood (Negative) Urine Nitrate (Negative) Urine Bilirubin (NEGATIVE) Urine Urobilinogen (0.2) E.U./dL Ur Leukocyte Esterase (NEGATIVE) Urine RBC (0-5/HPF) Urine WBC (0-5/HPF) Ur Squamous Epith Cells (0-5/HPF) Urine Bacteria (None) Ur Culture Indicated? Vol Urine Centrifuged Salicylates (<20) mg/dL U Opiates 300ng/mL cut (Negative) Ur Oxycodone Screen (Negative) Urine Methadone Screen (Negative) Acetaminophen (10-30) ug/mL Ur Barbiturates Screen (Negative) U Tricyclic Antidepress (Negative) Ur Phencyclidine Scrn (Negative) Ur Amphetamines Screen (Negative) U Methamphetamines Scrn (Negative) Ur MDMA Scrn (Ecstasy) (Negative) U Benzodiazepines Scrn (Negative) Urine Cocaine Screen (Negative) U Marijuana (THC) Screen (Negative) Urine Specific [place] (Normal) Ethyl Alcohol (<10) mg/dL Ur Creatinine (Normal) SARS-CoV-2 (PCR) Negative (Negative) MDM Narrative Medical decision making narrative: Patient is a 33-year-old male who is presenting from home for evaluation of nausea and vomiting, states that it is due to the fact that he is undergoing a ?buddhist episode he states that he needs to ?expel all the bad things and wants to just be monitored during this episode. He states that he believes it is due to witches, hexes, and poisons he states that he has been ongoing persistent since June. He states that he was just at another ER had received 3 L of normal saline and is only here to be monitored. He states that he is willing to have lab work and urine. He is adamant that he does not want any medications and just wants to be ?watched while this episode is occurring. Patient did have lab work urinalysis performed here. Patient was signed out to thad Davila pending full workup and evaluation by social work, most likely patient having psychosis and will require in patient psych. Vital signs, nurse triage note, medication list, previous ER visits and all imaging all reviewed. Patient has been accepted for transfer and is medically stable. Final diagnosis at this time is acute psychosis. Discharge Plan Departure Patient Disposition: Xfer Psychiatric Hosp Clinical Impression: Acute psychosis Referrals: Toney Cai MD [Primary Care Provider, [facility]] ED Sign-out <Saroj Mai MD - Last Filed: 09/27/24 19:11> Sign Out Provider Sign Out Attestation: GORDO: 09/27/24, 1800: I cared for the patient from 7:00 a.m. today until 1799, then handed off to Dr. Houser. During that time the patient was continuously dry heaving and vomiting and refusing to eat or drink or even take medication for his nausea and vomiting. Towards the very end of my shift he did finally accept some antiemetics which mildly improved his condition. However, he continued to refuse to have any p.o. intake besides water. Medically he only had some hypokalemia which was replaced. He did receive some IV fluids in the ER for hydration. Once he was medically cleared he was evaluated by our social media marketer and then DCF. I emphasized to the DCF worker that I do not feel that this patient was suitable for discharge unless being discharged into the care of a friend or family member who had agreed to stay with the patient 247 he is eating and drinking normally again. At the end of my shift the DCF worker was attempting to find inpatient psych placement for the patient.
[2024-09-27 06:58] LABS: Add Manual Diff / Slide Review NO; Hematocrit 40.4 % (41-53); Hemoglobin 14.2 g/dL (13.5-17.5); Lymphocytes Absolute Auto 1600 /uL (1100-4500); Mean Corpuscular HGB Conc 35.2 % (30-36); Mean Corpuscular Hemoglobin 27.1 PG (26-34); Mean Corpuscular Volume 76.9 fL (80-100); Platelet Count 203 X10^3/uL (150-400)
[2024-09-27 07:12] LABS: Acetaminophen < 10 ug/mL (10-30); Ethanol (ETOH) < 10 mg/dL (<10); Salicylate < 1.0 mg/dL (<20)
[2024-09-27 07:13] LABS: Alanine Aminotransferase 45 IU/L (<50); Albumin 4.6 g/dL (3.5-5.0); Albumin Globulin Ratio 1.6 (1.0-2.8); Alkaline Phosphatase 62 U/L (38-126); Blood Urea Nitrogen 12 mg/dL (9-20); Calcium 9.2 mg/dL (8.4-10.2); Carbon Dioxide 17 mmol/L (22-32); Chloride 103 mmol/L (98-107); Estimated Glomerular Filt Rate > 60 mL/min (>60); Globulin 2.8 g/dL (1.7-4.1); Glucose 105 mg/dL (70-99); HEMOLYSIS < 15 (0-50); Lipase 264 U/L (23-300); Magnesium 1.6 mg/dL (1.6-2.3); Potassium 3.2 mmol/L (3.4-5.1); Sodium 138 mmol/L (137-145); Total Protein 7.4 g/dL (6.3-8.2)
--- NOTE | 2024-09-27 07:16 | DI.CT.S_ITS ---
PROCEDURE: CT ABDOMEN PELVIS W CON INDICATIONS: hyperbili TECHNIQUE: After the administration of intravenous contrast, axial sections acquired from the lung bases to the pubic symphysis. Coronal and sagittal reformats were performed. For radiation dose reduction, the following was used: automated exposure control, adjustment of mA and/or kV according to patient size. COMPARISON: None. FINDINGS: Image quality: Diagnostic. Lower Chest: Distal esophagus appears thickened, (2/4). ABDOMEN: Liver: Focal fatty infiltration at the falciform ligament. Appears somewhat coarsened. Gallbladder: Prominent size. Increased conspicuity of the gallbladder wall. No calcified stones identified. No pericholecystic fluid. Biliary ducts: No biliary ductal dilatation is seen. Pancreas: No ductal dilation. No peripancreatic fluid collection. Spleen: Size is within normal limits. Adrenal Glands: No adrenal nodules. Kidneys and Ureters: No hydronephrosis. No solid mass. No complex renal cystic lesion which requires follow up. Stomach and Bowel: Normal colonic caliber, without significant wall thickening. Normal appendix. No small bowel obstruction. Stomach is not distended. Peritoneum: No abnormal intraperitoneal fluid. No free air. Ventral Wall: No significant ventral hernia. Abdominal Nodes: No retroperitoneal or mesenteric adenopathy by size criteria. Vessels: Aorta and inferior vena cava are normal in size. PELVIS: Pelvic Organs: Unremarkable. Bladder: No bladder wall thickening. No stone. Pelvic Nodes: No enlarged lymph nodes. Miscellaneous: No inguinal hernias are seen. Bones: No aggressive osseous abnormality. IMPRESSION: 1. No biliary ductal dilatation is seen. 2. Prominent gallbladder with increased conspicuity of the gallbladder wall. No pericholecystic fluid. Gallbladder ultrasound may be helpful. 3. Distal esophagus appears thickened. This could be further evaluated with endoscopy. Dictated by: Jasmeet Vences M.D. on 09/27/2024 at 8:30 Approved by: Jasmeet Vences M.D. on 09/27/2024 at 8:42
[2024-09-27 07:53] LABS: Thyroid Stimulating Hormone 0.617 uIU/mL (0.47-4.68)
[2024-09-27 08:30] LABS: Appearance Urine UA CLEAR; Bilirubin Urine UA NEGATIVE (NEGATIVE); Color Urine UA YELLOW; Glucose Urine UA NEGATIVE (Negative); Ketones Urine UA 3+ (NEGATIVE); Leukocyte Esterase Urine UA NEGATIVE (NEGATIVE); Nitrite Urine UA NEGATIVE (Negative); Occult Blood Urine UA NEGATIVE (Negative); Protein Urine UA NEGATIVE (Negative); Specific Gravity Urine UA 1.015 (1.000-1.035); Urobilinogen Urine UA 0.2 E.U./dL (0.2); pH Urine UA 5.5 (4.5-8.0)
[2024-09-27 08:33] LABS: UR Morphine/Opiate cutoff 300 Negative (Negative); Ur Specific Gravity Normal (Normal); Urine MDMA Negative (Negative); Urine Methamphetamines Negative (Negative); Urine Tetrahydrocannabinol Negative (Negative); Urine Tricyclic Antidepressant Negative (Negative)
[2024-09-27 08:35] LABS: Culture Indicated Urine Cult Not Indicated
--- NOTE | 2024-09-27 10:30 | DI.US.S_ITS ---
PROCEDURE: US ABDOMEN LIMITED INDICATIONS: gallbladder TECHNIQUE: Real-time scanning was performed of the abdominal and retroperitoneal organs, with image documentation. COMPARISON: [facility], CT, CT ABDOMEN PELVIS W CON, 09/27/2024, 7:53. FINDINGS: Liver: Liver is normal in size. Echogenic focus in the anterior right lobe measuring 4.5 cm. This is favored to represent focal fatty infiltration. Gallbladder: No gallstones. No wall thickening. No pericholecystic edema. Negative sonographic Gayle's sign. Biliary ducts: Intrahepatic bile ducts are non-dilated. Extrahepatic bile duct caliber measures 4 mm. Normal is 6-7 mm or less in diameter, or 10 mm or less post-cholecystectomy. Pancreas: Visualized portions of the pancreas are sonographically normal. IMPRESSION: No acute cholecystitis. No gallstones. Dictated by: Jasmeet Vences M.D. on 09/27/2024 at 10:33 Approved by: Jasmeet Vences M.D. on 09/27/2024 at 10:36
[2024-09-27 13:16] LABS: COVID19 -Nasal RAPID Negative (Negative)
[2024-09-27] MEDS: POTASSIUM CHLORIDE IN WATER 10 MEQ/100 ML PIGGYBACK 100 MEQ IV ×2 (13:36→14:54)
[2024-09-27] MEDS: SODIUM CHLORIDE 0.9% 1,000 ML 100 ML IV (13:36)
[2024-09-27] MEDS: ONDANSETRON 8 MG in SODIUM CHLORIDE 0.9% 50 ML 216 MG IV (14:09)
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
[2024-09-27] MEDS: KETOROLAC 30 MG/ML VIAL IV (15:40)
[2024-09-27] MEDS: METOCLOPRAMIDE 10 MG/2 ML INJ 5 MG IV ×2 (15:41→18:50)
--- NOTE | 2024-09-27 19:08 | CM.SWNOTE ---
Medication List found by ADRIENNE Witt with start date of 08/19/2019.
--- NOTE | 2024-09-27 19:12 | CM.SWNOTE ---
ED MOBILE UI/UX DESIGNER Note: DCR Eduar arrived at bedside to assess patient, attempted to create a safety plan with patient's mormonism [place] with check in everyday. After collaboration with ED Provider, Dr. Mai, it was identified that pt's medical status has high acuity for a discharge home without 24/7 supervision. This MOBILE UI/UX DESIGNER assisted ADRIENNE Witt with involuntary bed search: [facility] for [facility] due to current 3 week fast. - [facility]: There might be beds available, MOBILE UI/UX DESIGNER sent clinicals to [facility] Intake for review. 1900 - [facility] identified that they do not have any available ALYCE beds for tonight. - [facility]: It is reported that there are no ALYCE beds available at this time. - [facility]: It is reported that there are no ALYCE beds available at this time. - [facility]: It is reported that there are no ALYCE beds available at this time. - [facility]: It is reported that there are no ALYCE beds available at this time. - [facility]: It is reported that there are no ALYCE beds available at this time. - [facility]: Cannot accept until patient eats 2 meals consistently. 191: ADRIENNE Witt identified that patient DOES meet criteria for Involuntary BH treatment but there are no current facilities that have capacity or availability for transfer. 192: ADRIENNE Witt notified both ED Providers of unavailable [facility] facilities and explained walk away process which would include continued assessment of patient and bed search availability the following day. DCR documentation in pt chart. Plan: No current safe discharge due to pt status of grave disability and acute psychosis, ED Staff to continue to evaluate pt if inpatient treatment still necessary. Bed search will continue the following day if pt still meets criteria and if ALYCE bed found, DCR can return for detainment. PANFILO DíazSW
[2024-09-27] MEDS: diphenhydrAMINE 50 MG/ML VIAL IV (20:08)
[2024-09-27] MEDS: droPERidol 2.5 MG/ML VIAL IV (20:09)
--- NOTE | 2024-09-28 06:20 | PC.NURSE ---
Pt advised this morning about the need to have documented meal intake to go to a facility that will be able to monitor him longer term than the ER.
--- NOTE | 2024-09-28 06:28 | PC.NURSE ---
Pt given ice water at this time, per his request. Offered snacks, or other beverages but pt declined.
[2024-09-28 07:00] VITALS: BP 128/94; PULSE 90; RESP 22; O2SAT 96
[2024-09-28 15:00] VITALS: BP 136/93; PULSE 101; RESP 19; O2SAT 99
[2024-09-28] MEDS: ONDANSETRON 4 MG/2 ML INJ IV (15:11)
[2024-09-28] MEDS: diphenhydrAMINE 50 MG/ML VIAL IV (16:34)
[2024-09-28] MEDS: KETOROLAC 30 MG/ML VIAL IV (16:36)
--- NOTE | 2024-09-28 17:55 | CM.SWNOTE ---
ED SCALE MANAGER Note: Reviewed EMR and discussed pt status with ED staff. Per RN, no new developments overnight but patient remains actively psychotic and needs ALYCE placement. ED SCALE MANAGER re-initiated bed search for inpatient treatment: [facility] - no beds but can review for tomorrow. [facility] - it was reported that there are beds available, sent packet for review. [facility] - it was reported that there are beds available, sent packet for review. Follow up: [facility], still under review but concerned about pt not eating. [facility] - it was reported that there are beds available, sent packet for review. After review, [facility] states that their provider is requesting another CMP and patient to show he can eat. [facility] - it was reported that there are no beds available. [facility] Anthony - SCALE MANAGER left a voice message requesting a call back for intake. 1242: Intake at [facility] [address] states they have accepted patient for ALYCE treatment. 1250: SCALE MANAGER called Crisis Line for request of DCR dispatch for detainment. 1410: DCR Any responded to call, arrived at 1515 to complete assessment and family interview. Patient was officially detained at 1700. Original [address] documents sealed in yellow envelope and placed with transport packet. 1600: Intake at [facility] states they have accepted pt for ALYCE treatment. RN - RN # [phone] (Dori) Accepting Provider: Dr. Melquiades Michael MD Requesting pt to arrive at 2300. 1730: Referral to [facility] has been cancelled. SCALE MANAGER called [facility] and coordinated BLS transport for patient from ED at 2100, to arrive at facility at 2330. Plan: Involuntary Psychiatric Admission to [facility] via [facility] at 2100. ED following for coordination of dc plans. PANFILO DíazSW
[2024-09-28 19:35] VITALS: BP 125/90; PULSE 93; RESP 17; O2SAT 99
--- NOTE | 2024-09-28 19:38 | PC.NURSE ---
Addendum entered by Ludy Valladares R.N. 09/28/24 19:54: Addendum to prior note: Pt is pleasant to talk with and completely cooperative with all questions and medical monitoring from this RN. States that he believes this is a spiritual issue and is encouraged by ability to vomit today. Pt expresses willingness to accept nutritious supplement such as ensure today, and that he does feel it is important to give his body nutrition such as electrolytes and minerals. Will continue to encourage fluids and nutrition in that way. Original Note: Pt states that he regularly hears God speaking to him giving him instruction on whether or not to accept medications and on details of his fasting and spiritual life.
--- NOTE | 2024-09-28 19:53 | CM.SWNOTE ---
ED TURN DOWN MAN Note: Patient steps out of the room and requests to speak with this TURN DOWN MAN. TURN DOWN MAN entered the room and pt was found holding his copy of the ALYCE paperwork. Pt began to review each line of the declaration by ADRIENNE Agarwal and stating there are a lot of false or misconstrued items in the report. Pt repeatedly explains that he is not delusional and voluntary to [place]. This was never spoken to this TURN DOWN MAN. TURN DOWN MAN provides pt with a pen and clipboard to have him notate the ALYCE paperwork with what he feels are discrepancies. TURN DOWN MAN notifies ADRIENNE Agarwal of pt's statements and she reports the Church Business Administrator contact information is in the ALYCE paperwork. TURN DOWN MAN highlighted pt's right to a Church Business Administrator and showed pt the list of Public Defenders contact information as well as the after-hours contact number. Pt states he made contact with the [facility] Church Business Administrator. TURN DOWN MAN left a message for pt stepmother, Fara Ayala, of care plans per her and pt's request. Plan: Pt to transfer to [facility] for ALYCE Psych treatment via [facility] at 2100 with an arrival of 2230. FERNANDO Díaz
--- NOTE | 2024-09-28 20:49 | PC.NURSE ---
2024: This RN checks on patient and he reports continued nausea with dry-heaving and some output. Patient reports wanting to purge the demon. He also reports 3/10 chest discomfort from my heart to back. Provider Mik made aware of patient continued nausea and heart/chest pain. Provider verbal order for 2.5mg IV droperidol. This RN goes to place order and their are cautions with placing. This RN will ask provider to confirm OK to give and place order.
--- NOTE | 2024-09-28 21:23 | EKG_ITS ---
[place] [id number] [place] [id number] Test Date: 2024-09-28 Pat Name: Sajan Gongora Department: Located Within [facility] Room: Gender: Male [employer]itting [employer] Head: JAKE : 1990 Requested By: Order Number: [id number] Reading MD: Mauri Yost Measurements Intervals [place] Rate: 71 P: 27 AK: 178 QRS: -2 QRSD: 92 T: -1 QT: 390 QTc: 423 Interpretive Statements Normal sinus rhythm with sinus arrhythmia Left atrial enlargement Possible Lateral infarct , age undetermined Electronically Signed On 09-30-2024 13:53:50 PDT by Mauri Yost
[2024-09-28] MEDS: droPERidol 2.5 MG/ML VIAL IV (21:28)
[2024-09-28 21:31] VITALS: BP 135/89; PULSE 89; RESP 22; O2SAT 100
[2024-09-28 21:45] VITALS: TEMP 37.1
== END 2024-09-28 22:00 ==
PROVIDERS: Emergency Medicine; Student in an Organized Health Care Education/Training Program; Emergency Provider Family Medicine; PCP Family Medicine
DX: F23 Brief psychotic disorder (principal); R11.2 Nausea with vomiting, unspecified; E87.6 Hypokalemia; Z11.52 Encounter for screening for COVID-19
CPT/HCPCS: 74177; 76705; 80053; 80305; 80320; 80329; 81001; 83690; 83735; 84443; 85025; 87635; 93005; 96365; 96366; 96368; 96375; 96376; 99284; G0480; J1200; J1790; J1885; J2405; J2765; Q9967